=== PATIENT | male | born 1965 | race Caucasian/White ===

== ENCOUNTER 2016-10-10 16:29 | Emergency (ER) | payer BC ==
[~2016-10-10] VITALS: Ht 180.3 cm; Wt 109.0 kg
[~2016-10-10 16:29] MED LIST changes: -ALLO100T PO; -ASPI325T45 PO; -ASPI81TA28 PO; -B-COTAB18 PO; -CHOL2000 PO; -FLUT0.15 NAE; -MULT-506 PO; -OPTIRAY 320 IV PRN; -TRAZ50TA35 PO; -ZOLP10TA6 PO
[2016-10-10 16:53] VITALS: TEMP 36.8; Ht 180.3 cm; Wt 109.0 kg
[2016-10-10] MEDS ORDERED: MULT-506 PO (17:07)
[2016-10-10 17:31] VITALS: O2SAT 98
[2016-10-10] MEDS ORDERED: ZOLP10TA6 PO (17:50)
[2016-10-10] MEDS ORDERED: ALLO100T PO (17:50)
[2016-10-10] MEDS ORDERED: OMEG10007 PO (17:50)
[2016-10-10] MEDS ORDERED: CHOL2000 PO (17:50)
[2016-10-10] MEDS ORDERED: FLUT0.15 NAE (17:50)
[2016-10-10] MEDS ORDERED: B-COTAB18 PO (17:50)
[2016-10-10] MEDS ORDERED: ASPI325T45 PO (17:53)
[2016-10-10] MEDS ORDERED: ASPI81TA28 PO (17:53)
[2016-10-10] MEDS ORDERED: TRAZ50TA35 PO (17:53)
[2016-10-10 18:39] LABS: BASO % 0.5 %; BASO ABS # 0.03 K/uL (0-0.2); COMPLETE YES; HEMATOCRIT 40.5 % (42-52); IG% 0.2 %; LYMPH % 29.8 %; LYMPH ABS # 1.89 K/uL (1.2-3.4); MEAN CELL VOLUME 87.7 fL (80-100); MEAN CORPUSCULAR HEMOGLOBIN 30.3 pg (25-34); MEAN CORPUSCULAR HGB CONC 34.6 g/dl (32-36); MEAN PLATELET VOLUME 11.1 fL (7.4-10.4); MONO % 10.2 %; NEUT % 57.3 %; PLATELET COUNT 191 K/uL (130-400); RED BLOOD COUNT 4.62 M/uL (4.7-6.1); WHITE BLOOD COUNT 6.35 K/uL (4.8-10.8)
[2016-10-10 18:43] LABS: PARTIAL THROMBOPLASTIN RATIO 0.9; PROTHROMBIN TIME (PATIENT) 10.6 SECONDS (9.0-12.0)
[2016-10-10 18:51] LABS: BUN/CREATININE RATIO 15.1 (10-20); CALCIUM 8.7 mg/dl (8.5-10.1); CREATININE 1.6 mg/dl (0.60-1.40); POTASSIUM 3.8 mmol/L (3.5-5.1)
--- NOTE | 2016-10-10 18:51 | EMERGENCY ROOM VISIT NOTE ---
History Report prepared by Chris: Edwin Schulz Under the Supervision of: Dr. Eliot Arciniega M.D. First contact with patient: 18:22 Chief Complaint: ABNORMAL DIAGNOSTIC TESTING Stated Complaint: ABN CT SCAN History of Present Illness The patient is a 51 year old male who presents to the Emergency Room with complaints of an abnormal diagnostic testing. He notes he recently returned from [place] and reports total travel of about 30 hours. He reports having some heaviness sensation in his legs and in his chest last night. This morning, he was doing heavy exercise and felt tired. He had a D-dimer and US taken recently at [facility], and came to [facility] for a CT. He reports it was noted he may have a PE. The patient states he has a bifurcated femoral vein, and developed a DVT s/p an Achilles surgery in half the vein. He notes he was then put on Coumadin. Source of History: patient Onset: earlier today Position: other (global) Quality: other (abnomal diagnostic testing) Timing: other (episode) Associated Symptoms: + fatigue Note: The patient reports having chest and leg "heaviness" Review of Systems See HPI for pertinent positives & negatives. A total of 10 systems reviewed and were otherwise negative. Past Medical & Surgical Medical Problems: (1) History of DVT (deep vein thrombosis) Family History No pertinent family history stated. Social History Smoking Status: Never Smoker Current/Historical Medications Scheduled Allopurinol (Zyloprim), 100 MG PO DAILY Aspirin (Aspirin Ec), 81 MG PO DAILY B-Complex Vitamins (Vitamin B Complex), 1 TAB PO DAILY Cholecalciferol (Vitamin D3), 2,000 INTER.UNIT PO DAILY Fish Oil ([place]-3), 1 CAP PO DAILY Multivitamin (Multivitamin), 1 TAB PO DAILY Trazodone Hcl (Trazodone), 50 MG PO HS Scheduled PRN Aspirin (Aspirin), 975 MG PO UD PRN for Pain Cetirizine (Zyrtec), 10 MG PO DAILY PRN for Alergy Symptoms Fluticasone Propionate (Nasal) (Flonase Allergy Relief), 2 SPRAYS OSMEL DAILY PRN for Allergy Symptoms Zolpidem Tartrate (Zolpidem Tartrate), 5-10 MG PO HS PRN for Sleep Allergies Coded Allergies: Penicillins (Verified Allergy, Mild, 08/24/11) Physical Exam Vital Signs Date Time Temp Pulse Resp B/P Pulse Ox O2 Delivery O2 Flow Rate FiO2 10/10/16 19:12 74 18 133/83 98 Room Air 10/10/16 17:31 98 Room Air 10/10/16 17:08 90 10/10/16 16:53 36.8 83 18 156/88 97 Room Air Physical Exam CONSTITUTIONAL: No acute distress. HEENT: No icterus, moist mucous membranes NECK: No meningismus, trachea is midline. CARDIOVASCULAR: Regular rate, normal perfusion RESPIRATORY: Unlabored breathing. Clear to auscultation. GASTROINTESTINAL: Non-tender GENITOURINARY: No flank tenderness MUSCULOSKELETAL: Full range of motion NEUROLOGIC: No acute gross focal deficits. PSYCHIATRIC: Normal affect SKIN: Normal for ethnicity. Medical Decision & Procedures Laboratory Results 10/10/16 17:09 Red Blood Count 4.62, Mean Corpuscular Volume 87.7, Mean Corpuscular Hemoglobin 30.3, Mean Corpuscular Hemoglobin Concent 34.6, Mean Platelet Volume 11.1, Neutrophils (%) (Auto) 57.3, Lymphocytes (%) (Auto) 29.8, Monocytes (%) (Auto) 10.2, Eosinophils (%) (Auto) 2.0, Basophils (%) (Auto) 0.5, Neutrophils # (Auto ) 3.64, Lymphocytes # (Auto) 1.89, Monocytes # (Auto) 0.65, Eosinophils # (Auto ) 0.13, Basophils # (Auto) 0.03 10/10/16 17:09 Test 10/10/16 17:09 White Blood Count 6.35 K/uL (4.8-10.8) Red Blood Count 4.62 M/uL (4.7-6.1) Hemoglobin 14.0 g/dL (14.0-18.0) Hematocrit 40.5 % (42-52) Mean Corpuscular Volume 87.7 fL (80-100) Mean Corpuscular Hemoglobin 30.3 pg (25-34) Mean Corpuscular Hemoglobin Concent 34.6 g/dl (32-36) Platelet Count 191 K/uL (130-400) Mean Platelet Volume 11.1 fL (7.4-10.4) Neutrophils (%) (Auto) 57.3 % Lymphocytes (%) (Auto) 29.8 % Monocytes (%) (Auto) 10.2 % Eosinophils (%) (Auto) 2.0 % Basophils (%) (Auto) 0.5 % Neutrophils # (Auto) 3.64 K/uL (1.4-6.5) Lymphocytes # (Auto) 1.89 K/uL (1.2-3.4) Monocytes # (Auto) 0.65 K/uL (0.11-0.59) Eosinophils # (Auto) 0.13 K/uL (0-0.5) Basophils # (Auto) 0.03 K/uL (0-0.2) RDW Standard Deviation 46.3 fL (36.4-46.3) RDW Coefficient of Variation 14.3 % (11.5-14.5) Immature Granulocyte % (Auto) 0.2 % Immature Granulocyte # (Auto) 0.01 K/uL (0.00-0.02) Prothrombin Time 10.6 SECONDS (9.0-12.0) Prothromb Time International Ratio 1.0 (0.9-1.1) Activated Partial Thromboplast Time 24.0 SECONDS (21.0-31.0) Partial Thromboplastin Ratio 0.9 Anion Gap 8.0 mmol/L (3-11) Est Creatinine Clear Calc Drug Dose 68.6 ml/min Estimated GFR () 57.0 Estimated GFR (Non- 49.2 BUN/Creatinine Ratio 15.1 (10-20) Calcium Level 8.7 mg/dl (8.5-10.1) Labs reviewed by ED physician. ED Course 183: Past medical records reviewed. The patient was evaluated in room A9A. A complete history and physical examination was performed. 1850: Discussed the patient's case with Dr. Sawyer. 1915: Upon reexamination the patient is doing well. I discussed results and treatment plan with the patient. He verbalizes agreement and understanding. The patient is ready for discharge. Medical Decision 51-year-old presented to the emergency department after CT scan showed positive pulmonary embolus. He has a history of DVT in the past after Achilles surgery. He had some chest discomfort and while DVT of the lower extremities at [facility] was normal D-dimer was positive and subsequent CT demonstrated (+) PE (Please see CT report for full details.) Creatinine 1.6. Consultation with Dr. Simon with hospitalist service obtained. Case also discussed with clinical pharmacist. Hospitalist and I made decision to prescribe Xarelto 15mg twice a day and discharge to have outpatient follow-up with primary doctor. Prescription called into [facility] by me. Patient understands to follow-up with his primary doctor promptly and to have his creatinine rechecked in the next 1-2 weeks. Consults Time Called: 1844 Consulting Physician: Dr. Sawyer Returned Call: 1849 Discussed the patient's case with Dr. Sawyer. Impression Primary Impression: Pulmonary embolism Scribe Attestation The scribe's documentation has been prepared under my direction and personally reviewed by me in its entirety. I confirm that the note above accurately reflects all work, treatment, procedures, and medical decision making performed by me. Departure Information Dispostion Home / Self-Care Referrals Daniel Schmitt M.D. (PCP) Patient Instructions Embolism Pulmonary D[facility], [facility] Additional Instructions supervisory clerk your Xarelto 15mg BID. Check kidney funtion (Cr 1.6) in 1-2 weeks with your primary doctor.
[2016-10-10 19:21] VITALS: BP 133/83; PULSE 71; O2SAT 96
--- NOTE | 2016-10-11 01:22 | CONSULTATION REPORT ---
DATE OF CONSULTATION: 10/10/2016 CHIEF COMPLAINT: Abnormal CT scan results. HISTORY OF PRESENT ILLNESS: A 51-year-old male who presents to Emergency Room complaining of abdominal diagnostic testing. He recently returned from [place] reported that his travel was about 30 hours with connecting flights. He reported some heaviness sensation in his legs and his chest last night. He has a history of DVT in his left leg that was provoked after ankle surgery. This morning, he was doing heavy exercise and felt tired. An ultrasound was taken recently at [facility]. He was told at [facility] that he had old blood clot in his left leg at bifurcation. He came to [facility] for a CAT scan. He reports that it was noted that he may have a PE. He reports that he was put on Coumadin when he had his first episode of DVT before. REVIEW OF SYSTEMS: Negative except as above. Ten out of 14 systems were reviewed. He denies shortness of breath, chest pain. 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 FAMILY HISTORY: No coronary artery disease, diabetes, cancer. SOCIAL HISTORY: Does not smoke, does not drink. CURRENT MEDICATIONS: Allopurinol 100 mg p.o. daily, aspirin 81 mg p.o. daily, B complex 1 tablet p.o. daily, cholecalciferol 2000 international units p.o. daily, fish oil 1 capsule p.o. daily, multivitamin 1 tablet p.o. daily, trazodone 50 mg p.o. at bedtime, aspirin 975 mg p.r.n. pain, cetirizine 10 mg p.o. daily, fluticasone 2 sprays nasally p.r.n. allergy symptoms, zolpidem 5-10 mg p.o. p.r.n. sleep. ALLERGIES: HE IS ALLERGIC TO PENICILLIN. PHYSICAL EXAMINATION: VITAL SIGNS: Temperature 36.8, pulse 90, respirations 18, blood pressure 156/88, pulse ox 97% on room air. GENERAL: Not in acute distress. HEENT: Normocephalic, atraumatic. PERRLA, EOMI. Mouth moist, no lesions. NECK: No JVD. Trachea midline. Throat is not enlarged. CHEST: Clear to auscultation bilateral. No wheezes, no rhonchi. ABDOMEN: Soft, nontender, nondistended. Bowel sounds present bilateral. EXTREMITIES: No clubbing, cyanosis, edema. NEUROLOGICAL: Alert, oriented x3. Motor sensory normal. Deep tendon reflexes 2+ bilateral. Cranial nerves II-XII are intact. SKIN: No rash. No jaundice. LYMPHATIC: No pathological lymphadenopathy. LABORATORY DATA: CBC normal. BMP normal except for a BUN of 24, creatinine of 1.6, and glucose 81. IMAGING STUDY: Chest CTA showed bilateral pleural predominantly right-sided pulmonary artery filling defects consistent with pulmonary embolism and also a 4 mm right middle lobe pulmonary nodule. ASSESSMENT AND PLAN: 1. Bilateral right-sided pulmonary artery pulmonary embolism. The patient is asymptomatic. We will place the patient on oral Xarelto 15 mg p.o. b.i.d. for 21 days followed by 20 mg of Xarelto. Follow up with primary care physician to decide length of treatment. 2. A 4 mm right middle lobe pulmonary nodule. Initial followup could be done in 12 months if unchanged then No further followup is required. The patient should follow up with his primary care physician. The patient was also told about his restrictions due to his PE. He should not fly for the next 3 months, avoid any strenuous activity next few months. Time spent doing this admission 50 minutes. RIGOBERTO
== END 2016-10-10 19:24 | disposition home or self-care (01) ==
LOC: C.EDB 16:30 → C.EDA 19:24
DX: I26.99 Other pulmonary embolism without acute cor pulmonale (principal); Z79.82 Long term (current) use of aspirin; Z79.899 Other long term (current) drug therapy; Z88.0 Allergy status to penicillin

== ENCOUNTER → 2016-10-10 | Outpatient (CLI) | payer BC ==
[~2016-10-10] MED LIST: ALLO100T PO; ASCA500 PO; ASPEC325 PO; ASPI325T45 PO; ASPI81TA28 PO; B-COTAB18 PO; CETI10TA84 PO; CHOL100010 PO; CHOL2000 PO; CMD5 PO; FLAXSEED PO; FLNIN NAE; FLUT0.15 NAE; MULT-506 PO; OMEG10007 PO; OPTIRAY 320 IV PRN; RANITAB33 PO; TRAZ50TA35 PO; VITAMIN B COMPLEX PO; ZOLP10TA6 PO; [UNRECOGNIZED DRUG - CODE] PO
--- NOTE | 2016-10-10 16:14 | DIAGNOSTIC IMAGING REPORT ---
CT ANGIOGRAM OF THE CHEST CLINICAL HISTORY: Atypical chest pain. History of DVT. COMPARISON STUDY: Chest x-ray dated 08/11/2011 TECHNIQUE: Following the IV administration of 114 mL of [id number]-320, CT angiogram of the thorax was performed from the thoracic inlet to the lung bases utilizing the pulmonary embolus protocol. Images are reviewed in the axial, sagittal, and coronal planes. IV contrast was administered without complication. MIP imaging was performed. CT DOSE: 589.57 mGy.cm FINDINGS: No pathologically enlarged axillary mediastinal or hilar lymph nodes were visualized. There was no evidence of thoracic aortic dilatation. There are bilateral, predominantly right-sided, pulmonary artery filling defects. Several these appear subacute. No pleural effusions are visualized. There was no evidence of focal pulmonary consolidation. There is a 4 mm right middle lobe pulmonary nodule as visualized in image #[id number]. IMPRESSION: 1. Bilateral predominantly right-sided pulmonary artery filling defects. The findings are consistent with pulmonary embolism. Several of these appear subacute 2. 4 mm right middle lobe pulmonary nodule Please refer to below summary of Fleischner criteria recommendations for follow-up of incidental CT nodules (Robyn Waddell, Guidelines for management of small pulmonary nodules detected on CT scans: A statement from the Fleischner Society, Radiology 237: [phone].) Low Risk Patient: Minimal or no smoking or other known risk factors for malignancy <=4 mm: No follow-up needed. >4-6 mm: Initial follow-up CT at 12 months; if unchanged, no further follow-up. >6-8 mm: Initial follow-up CT at 6-12 months then at 18-24 months if no change. >8 mm: Follow-up CT at \R\3, 9, 24 months, or PET and/or biopsy. High Risk Patient: History of smoking or other known risk factors <=4 mm: Follow-up at 12 months; if unchanged, no further follow-up. >4-6 mm: Initial follow-up CT at 6-12 months then at 18-24 months if no change. >6-8 mm: Initial follow-up CT at 3-6 months then at 9-12 and 24 months if no change. >8 mm: Same as low risk patient. Note: Nodule size measured as average of length and width. Ground glass or partly solid nodules may require longer follow-up to exclude indolent adenocarcinoma. Electronically signed by: Stalin Lund M.D. 10/10/2016 4:13 PM Dictated Date/Time: 10/10/2016 4:06 PM
== END | disposition home or self-care (01) ==
LOC: C.CTS 15:43
PROVIDERS: ATTEND Nurse Practitioner Family
DX: R07.89 Other chest pain (principal); Z86.718 Personal history of other venous thrombosis and embolism; Z78.9 Other specified health status; R91.1 Solitary pulmonary nodule

== ENCOUNTER → 2017-04-25 | Outpatient (CLI) | payer BC ==
[~2017-04-25] MED LIST changes: +ALLO100T PO; -ASCA500 PO; -ASPEC325 PO; +ASPI325T45 PO; +ASPI81TA28 PO; +B-COTAB18 PO; -CHOL100010 PO; +CHOL2000 PO; -CMD5 PO; -FLAXSEED PO; -FLNIN NAE; +FLUT0.15 NAE; +MULT-506 PO; -RANITAB33 PO; +TRAZ50TA35 PO; -VITAMIN B COMPLEX PO; +ZOLP10TA6 PO; -[UNRECOGNIZED DRUG - CODE] PO
--- NOTE | 2017-04-25 16:38 | DIAGNOSTIC IMAGING REPORT ---
LEFT FOOT MIN 3 VIEWS CLINICAL HISTORY: HAMMER TOES COMPARISON: None FINDINGS: Alignment of the left foot is anatomic. The tarsometatarsal joints are intact. There is minimal posterior and plantar calcaneal spurring. Note is made of a 2.1 x 0.8 cm lucent mildly expansile lesion within the proximal phalanx of the left second toe. There is no pathologic fracture. No additional osseous lesions are identified. No erosions are identified. There is minimal arthritis within several articulations of the left foot. IMPRESSION: 1. No acute fracture or dislocation of the left foot. 2. 2.1 x 0.8 cm lucent expansile lesion within the proximal phalanx of the left second digit. This likely represents an enchondroma. Electronically signed by: Charles Acosta M.D. 04/25/2017 4:37 PM Dictated Date/Time: 04/25/2017 4:33 PM
--- NOTE | 2017-04-25 16:42 | DIAGNOSTIC IMAGING REPORT ---
RIGHT FOOT 3 VIEWS CLINICAL HISTORY: Hammertoes. FINDINGS: 3 views of the right foot are compared to study dated 02/03/2016. The skeletal structures are well mineralized. No fracture is seen. The joint spaces of the foot are well-maintained. Mild spurring is seen along the dorsal last of the tarsal bones. The overlying soft tissues are within normal limits. An os peroneum is incidentally noted. IMPRESSION: No acute bony abnormality is seen in the right foot. Electronically signed by: Mark Santoro M.D. 04/25/2017 4:41 PM Dictated Date/Time: 04/25/2017 4:38 PM
== END | disposition home or self-care (01) ==
LOC: C.RDSM 16:16
PROVIDERS: ATTEND Podiatrist
DX: M20.41 Other hammer toe(s) (acquired), right foot (principal); M20.42 Other hammer toe(s) (acquired), left foot

== ENCOUNTER → 2017-09-06 | Outpatient (CLI) | payer BC, OTHER | END | disposition home or self-care (01) | LOC: C.RDSM 11:19 | PROVIDERS: ATTEND Orthopaedic Surgery | DX: M77.8 Other enthesopathies, not elsewhere classified (principal) ==

== ENCOUNTER 2023-12-05 05:24 | Observation (INO) ==
--- NOTE | 2023-11-14 16:13 | PAT Medication Instructions ---
Medication Instructions Date of Service November 14, 2023 Home Medications Medication Instructions Recorded gentamicin 0.3 % eye drops 2 drp ophthalmic (eye) DAILY #5 mL 11/13/23 allopurinol 100 mg tablet 100 mg PO QAM aspirin 325 mg tablet 975 mg PO QAM PRN Pain fluticasone propionate 50 mcg/actuation nasal spray,suspension (Flonase Allergy Relief) 1 sprays intranasal BID PRN sinus congestion omega-3 fatty acids 1,000 mg capsule (Fish Oil Concentrate) 1,000 mg PO QAM rivaroxaban 20 mg tablet (Xarelto) 20 mg PO QPM trazodone 50 mg tablet 50 mg PO HS albuterol sulfate 90 mcg/actuation aerosol inhaler (ProAir HFA) 1 puff inhalation QID PRN Shortness Of Breath doxycycline hyclate 50 mg tablet 50 mg PO DAILY PRN Rash cholecalciferol (vitamin D3) 50 mcg (2,000 unit) capsule (Vitamin D3) 50 mcg PO Q OTHER DAY [id number] 300 mcg-K 60 mcg-lycop 600 mcg-lutein 300 mcg tablet (Men 50 Plus Multivitamin) 1 tab PO QAM zinc 1 tab PO HS coenzyme Q10 100 mg capsule (Co Q-10) 150 mg PO Q OTHER DAY krill oil 500 mg capsule 500 mg PO QAM tramadol 50 mg tablet 50 mg PO Q6H PRN Pain azelaic acid 15 % topical gel 1 applic topical DAILY PRN Acne pantoprazole 40 mg tablet,delayed release 40 mg PO QPM acetaminophen 325 mg tablet (Tylenol) 650 mg PRN Pain gentamicin 0.3 % eye drops 2 drp ophthalmic (eye) DAILY Continue as directed doxycycline hyclate 50 mg tablet 50 mg PO DAILY PRN Rash (if needed) gentamicin 0.3 % eye drops 2 drp ophthalmic (eye) DAILY ASK your surgeon for instructions aspirin 325 mg tablet 975 mg PO QAM PRN Pain ASK your prescriber and surgeon rivaroxaban 20 mg tablet (Xarelto) 20 mg PO QPM (in order to get spinal an esthesia DOS- must be off Xarelto/rivaroxaban for at least 72 hours) STOP taking 2 weeks before surgery omega-3 fatty acids 1,000 mg capsule (Fish Oil Concentrate) 1,000 mg PO QAM coenzyme Q10 100 mg capsule (Co Q-10) 150 mg PO Q OTHER DAY krill oil 500 mg capsule 500 mg PO QAM STOP taking 24 hours before surgery azelaic acid 15 % topical gel 1 applic topical DAILY PRN Acne DO NOT take the morning of surgery cholecalciferol (vitamin D3) 50 mcg (2,000 unit) capsule (Vitamin D3) 50 mcg PO Q OTHER DAY [id number] 300 mcg-K 60 mcg-lycop 600 mcg-lutein 300 mcg tablet (Men 50 Plus Multivitamin) 1 tab PO QAM Take morning of surgery With a small sip of water, OTHERWISE NOTHING TO EAT OR DRINK AFTER MIDNIGHT: allopurinol 100 mg tablet 100 mg PO QAM fluticasone propionate 50 mcg/actuation nasal spray,suspension (Flonase Allergy Relief) 1 sprays intranasal BID PRN sinus congestion (if needed) albuterol sulfate 90 mcg/actuation aerosol inhaler (ProAir HFA) 1 puff inhalation QID PRN Shortness Of Breath (use if needed; please bring with you to hospital day of surgery if possible) tramadol 50 mg tablet 50 mg PO Q6H PRN Pain (if needed) acetaminophen 325 mg tablet (Tylenol) 650 mg PRN Pain (if needed) Take evening before surgery fluticasone propionate 50 mcg/actuation nasal spray,suspension (Flonase Allergy Relief) 1 sprays intranasal BID PRN sinus congestion (if needed) trazodone 50 mg tablet 50 mg PO HS albuterol sulfate 90 mcg/actuation aerosol inhaler (ProAir HFA) 1 puff inhalation QID PRN Shortness Of Breath (if needed) zinc 1 tab PO HS tramadol 50 mg tablet 50 mg PO Q6H PRN Pain (if needed) pantoprazole 40 mg tablet,delayed release 40 mg PO QPM acetaminophen 325 mg tablet (Tylenol) 650 mg PRN Pain (if needed) Other Notes If you have any questions please call us at [phone] or [phone] or [phone] or [phone]
--- NOTE | 2023-11-19 10:19 | Anesthesiology Consultation ---
Date of Service November 19, 2023 Assessment & Plan (1) Encounter for pre-operative examination: - facial hair: Patient was advised on trimming/shaving facial hair. - Outpatient joint assessment: Patient is currently scheduled for inpatient pathway. If re-evaluated and patient/surgeon requests outpatient pathway, patient is acceptable candidate for outpatient joint program from anesthesia standpoint pending surgeon's office assessment of pt motivation/support/completion of same day joint program preop requirements. Chart Review Chart Review: Acceptable Risk for Surgery and Patient seen in Pre Admission Testing Teaching & Discussion Pre-Anesthesia Teaching/Discussion Notes: Instructed NPO after midnight before surgery, except medications with 15 cc of water. Medication instructions provided according to the PAT guidelines. History Surgery Operation Date: 12/05/23 09:00 Proposed Procedures p Left Total Hip Arthroplasty with Dual Mobility Cup - Rudy Benito MD Height/Weight Height: 5 ft 10 in Weight: 120.2 kg Allergies Allergy/AdvReac Type Severity Reaction Status Date / Time Penicillins Allergy Intermediate Elevated Verified 11/07/23 14:26 liver enzymes Medications Home Medications Medication Instructions Recorded Confirmed Last Taken allopurinol 100 mg tablet 100 mg PO QAM 08/13/19 11/07/23 11/07/23 08:15 aspirin 325 mg tablet 975 mg PO QAM PRN Pain 08/13/19 11/07/23 11/01/23 fluticasone propionate 50 1 sprays intranasal BID PRN sinus 08/13/19 11/07/23 03/25/21 09:00 mcg/actuation nasal congestion spray,suspension (Flonase Allergy Relief) omega-3 fatty acids 1,000 mg 1,000 mg PO QAM 08/13/19 11/07/23 11/01/23 capsule (Fish Oil Concentrate) rivaroxaban 20 mg tablet (Xarelto) 20 mg PO QPM 08/13/19 11/07/23 11/01/23 trazodone 50 mg tablet 50 mg PO HS 08/13/19 11/07/23 11/06/23 albuterol sulfate 90 mcg/actuation 1 puff inhalation QID PRN 09/09/19 11/07/23 09/29/19 aerosol inhaler (ProAir HFA) Shortness Of Breath doxycycline hyclate 50 mg tablet 50 mg PO DAILY PRN Rash 09/09/19 11/07/23 2 Weeks Ago ~10/24/23 cholecalciferol (vitamin D3) 50 50 mcg PO Q OTHER DAY 03/22/21 11/07/23 11/03/23 mcg (2,000 unit) capsule (Vitamin D3) [id number]-[id number] 300 mcg-K 60 1 tab PO QAM 03/22/21 11/07/23 11/04/23 mcg-lycop 600 mcg-lutein 300 mcg tablet (Men 50 Plus Multivitamin) zinc 1 tab PO HS 03/22/21 11/07/23 11/05/23 coenzyme Q10 100 mg capsule (Co 150 mg PO Q OTHER DAY 03/25/21 11/07/23 11/03/23 Q-10) krill oil 500 mg capsule 500 mg PO QAM 04/13/21 11/07/23 11/01/23 tramadol 50 mg tablet 50 mg PO Q6H PRN Pain 10/26/23 11/07/23 11/04/23 azelaic acid 15 % topical gel 1 applic topical DAILY PRN Acne 11/05/23 11/05/23 Unknown pantoprazole 40 mg tablet,delayed 40 mg PO QPM 11/05/23 11/05/23 11/05/23 release acetaminophen 325 mg tablet 650 mg PRN Pain 11/07/23 11/06/23 (Tylenol) gentamicin 0.3 % eye drops 2 drp ophthalmic (eye) DAILY #5 mL 11/13/23 Unknown Past Medical History Medical History (Updated 11/19/23 @ 14:19 by Bibi Nesbitt PA-C) Asthma exercise induced, inhaler rarely-last used yrs ago Bilateral hip joint arthritis BPH (benign prostatic hyperplasia) Cardiac murmur as child, pt denies persistence into adulthood Deep vein thrombosis post achilles surgery> 09/2011 > currently taking xarelto daily. GERD (gastroesophageal reflux disease) controlled, stable per pt History of colon polyps History of COVID-19 (~07/2022) resolved Hypertension borderline, no meds USP (current) use of anticoagulants Osteoarthritis Pulmonary embolism (~2017) from plane ride, xarelto Sleep apnea CPAP-compliant Patient denies h/o stroke, seizures, heart attack, heart failure, DM, or blood transfusions. Exercise / Class Metabolic Activity II 4-5 Yardwork/Stairs/Walk up hill (denies chest discomfort or shortness of breath with 1 FOS) Past Family History Family History Grandfather (Paternal) Diabetes Other No family history of adverse response to anesthesia Past Surgical History Surgical History (Updated 11/19/23 @ 10:24 by Bibi Nesbitt PA-C) History of Achilles tendon repair lt History of colonoscopy multiple History of nasal septoplasty History of nephrectomy, left donor History of tonsillectomy Hx of elbow surgery bone spur left elbow Hx of hand surgery left little finger Hx of hand surgery right middle finger surgery Hx of thumb surgery x2 (right thumb) Hx of vasectomy S/P arthroscopy of right shoulder Past Anesthesia History No Hx of Anesthesia Complications and No Family Hx of Anesthesia Complications History of PONV No Hx of PONV and No Hx of Motion Sickness Social History Smoking Status: Never smoker Do You Dip or Chew Tobacco: No Hx Alcohol Use: Yes Alcohol type: beer, wine and hard liquor alcohol intake frequency: a few times a month Hx Substance Use: No substance use type: does not use Review of Systems Patient denies chest pain, shortness of breath, dyspnea on exertion, fever, chills, cough, wheezing, or palpitations. Physical Exam Vital Signs Vitals BP 127/86 P 61 TEMP 97.8 SP02 99% on RA RESP 18 Physical Patient resting comfortably in chair in no acute distress, alert and oriented, responding appropriately throughout visit Full cervical extension range of motion without pain TMD 3.5 finger breadths Mallampati Score 2 Dentition: intact, denies chipped or loose teeth, caps/crowns, implants or bridges Lungs: normal respiratory effort. Good air movement, clear throughout to auscultation, no adventitious breath sounds Cardiac: regular rate and rhythm, no murmurs noted Carotid arteries: negative bruit bilat Lab Results Anesthesia Preop Results Results Anesthesia Widget: WBC 4.52 K/ul (4.8-10.8) L 11/19/23 Hgb 14.7 g/dl (14.0-18.0) 11/19/23 Hct 43.2 % (42.0-52.0) 11/19/23 Plt 194 K/uL (130-400) 11/19/23 Na 136 mmol/L (135-146) 03/15/24 K 4.5 mmol/L (3.5-5.3) 11/16/23 Cl 104 mmol/L (98-110) 11/16/23 CO2 22 mmol/L (20-32) 11/16/23 BUN 29 mg/dL (7-25) H 11/16/23 Creat 1.33 mg/dL (0.70-1.30) H 11/16/23 Glucose Level 103 mg/dL (65-99) H 11/16/23 PT 12.3 Seconds (9.0-12.0) H 11/19/23 PTT 33 Seconds (21-31) H 11/19/23 INR 1.1 (0.9-1.1) 11/19/23 Urine Color YELLOW (YELLOW) 11/16/23 Urine Appearance CLEAR (CLEAR) 11/16/23 Urine pH 6.5 (5.0-8.0) 11/16/23 Urine Specific [place] 1.008 (1.001-1.035) 11/16/23 Urine Protein NEGATIVE (NEGATIVE) 11/16/23 Urine Glucose (UA) NEGATIVE (NEGATIVE) 11/16/23 Urine Ketones NEGATIVE (NEGATIVE) 11/16/23 Urine Blood NEGATIVE (NEGATIVE) 11/16/23 Urine Nitrite NEGATIVE (NEGATIVE) 11/16/23 Urine Bilirubin NEGATIVE (NEGATIVE) 11/16/23 Urine Leukocyte Esterase NEGATIVE (NEGATIVE) 11/16/23 Blood Type A Positive 11/19/23 Antibody Screen NEGATIVE 11/19/23 Testing Laboratory Results 11/16/23 SODIUM: 136 POTASSIUM: 4.5 CHLORIDE: 104 CO2: 22 BUN: 29 CREATININE: 1.3 GLUCOSE: 103 UA: clear, negative Electrocardiogram Date: 11/19/23 NSR, rate 63 bpm Chest X-Ray Date: 11/19/23 No acute chest disease. Stress Test Date: 04/12/21 METS 10 MPHR > 100% Negative stress echo and EKG for ischemia EF 60% Normal LV wall motion at rest
[2023-12-05] MEDS: LR 500ML BOLUS, THEN 15ML/HR IV SCH (06:09)
[2023-12-05] MEDS: LR 60ML/HR IV SCH (06:09)
[2023-12-05] MEDS ORDERED: ROPIVACAINE 0.5% 5 MG/ML 30 ML VIAL ONE (06:23)
--- NOTE | 2023-12-05 06:30 | History & Physical Bridge Note ---
Date of Service December 05, 2023 History & Physical Bridge Note I have examined the patient, reviewed the History & Physical and in the interval since the performance of the History & Physical I have noted the following changes of clinical significance:site and consent verified.advised regarding rowing and avoidance . no changes noted
[2023-12-05] MEDS ORDERED: MIDAZOLAM HCL 1 MG/ML 2ML VIAL ONE (06:40)
[2023-12-05] MEDS ORDERED: ONDANSETRON INJ 2 MG/ML 2 ML VIAL IV PRN ×2 (06:40→09:55)
[2023-12-05] MEDS ORDERED: HYDROmorphone INJ 1 MG/ML SYRINGE IV PRN (06:40)
[2023-12-05] MEDS ORDERED: ePHEDrine sulfate 50 MG/ML AMP IV PRN (06:40)
[2023-12-05] MEDS ORDERED: ATROPINE SULFATE 0.1 MG/ML 10ML SYR IV PRN (06:40)
[2023-12-05] MEDS: ceFAZolin 3000MG 3,000 MG/72.5 ML BAG IV SCH (06:55)
[2023-12-05] MEDS ORDERED: PROPOFOL IV EMULSION 10 MG/ML 20 ML VIAL IV ONE ×2 (07:20→07:26)
[2023-12-05] MEDS: ORTHO JOINT ANESTHETIC ONE (07:28)
[2023-12-05] MEDS: TRANEXAMIC ACID 1,000 MG x 1 **TOPICAL Use Intraop TOP SCH (08:22)
[2023-12-05] MEDS: ROPIVACAINE 0.5% HCL/PF 246 MG, EPINEPHrine 30MG/30ML (OR USE) 0.5 MG in SODIUM CHLORID... INFIL SCH (08:30)
--- NOTE | 2023-12-05 08:36 | Post Operative Brief Note ---
Immediate Post Op Note v1 Date of Surgery December 05, 2023 Pre & Post Diagnosis Operation Date: 12/05/23 07:00 <No data on this case meets the specified criteria> Osteoarthritis with femoral acetabular impingement left hip pre and postop diagnosis same I identified the patient and participated in the time-out.: Yes Procedure Operation Date: 12/05/23 07:00 <No data on this case meets the specified criteria> Noncemented left total arthroplasty with dual mobility implant Surgeon Rudy Benito MD Attending Anesthesiologist BENTLEY/Liang Estimated Blood Loss 150 Findings Consistent with Post-Op Diagnosis Cam lesion with tonus 2 and 3 osteoarticular disease of his left hip. Labral tear Fluids See anesthesia report
--- NOTE | 2023-12-05 08:40 | Operative Report ---
Post Operative Report Pre & Post Diagnosis Operation Date: 12/05/23 07:00 <No data on this case meets the specified criteria> Osteoarthritis left hip with a large cam lesion and labral tear pre and postop diagnosis same I identified the patient and participated in the time-out.: Yes Procedure Operation Date: 12/05/23 07:00 <No data on this case meets the specified criteria> Noncemented left total replacement with dual mobility implant Surgeon Rudy Benito MD Diesel Service Technician BENTLEY/Liang Estimated Blood Loss 150 Findings Consistent with Post-Op Diagnosis Osteoarthritis tonnis 2 and 3 large labral tear large cam lesion pincer lesion Fluids See anesthesia report Specimens Bone pathology Drains None Complications None Indications Severe pain failed conservative management Description of Procedure After the patient was appropriate notified site verified consent verified antibiotics confirmed as being given the left lower extremity was examined revea ling limitations of internal and external rotation 20 degree flexion contracture. Leg lengths were relatively equal. He was then placed in the right lateral cubitus position the left lower extremity prepped and draped use routine fashion. A posterior approach the hip was then carried out. Sharp dissection down to the fascia this was then incised under direct vision appropriate retractor placed protecting the sciatic nerve short external rotators were then identified and released the capsule was then teed and the hip dislocated the femoral neck resected. Acetabular cleanout was required there was a large amount of synovial disease being pulled and are not anterior labrum torn and into the joint. This was all resected. Serial reaming was then carried up to a 54 and 54 cup impacted in appropriate inclination and anteversion secured with additional 6.5 x 30 mm screw with excellent purchase. The dual mobility liner was then seated. The femur was then flexed internally rotated and serial broaching carried up to a size 2 appropriate stem applied with high offset and neck lengths were appropriate hip was very stable. Leg lengths were excellent. The hip was then dislocated all remaining trial elements were removed the wound was then soaked in Betadine and Pulsavac and soaked in TXA for 3 minutes and then the permanent stem seated fit very well so the permanent head and dome cover seated the hip was then reduced it was stable in all planes. The leg lengths were excellent. The capsule was then closed the short external rotators were then closed with #2 Vicryl the The IT band and gluteus jessica fascia closed in separate layers in the same suture. Deep fat was closed with #2 Vicryl superficial with 2-0 Vicryl and standstill clips for skin appropriate dressing applied patient transferred recovery in satisfactory addition having Tolerated procedure well. Ortho mix was injected about the wound with elimination of ketorolac based on kidney disease. Summary of implants size 54 cup acetabular shell sector 30 mm screw x 6.5 dome cover 54 x 47 liner to high offset collared femoral stem [id number] bipolar head 28+5 ceramic head. EBL 150 cc or less crystalloid per anesthesia bone pathology pending DVT prophylaxis per protocol. I attest to the content of the Intraoperative Record and any orders documented therein. Any exceptions are noted below.
--- NOTE | 2023-12-05 08:51 | Operative Report ---
Post Operative Report Pre & Post Diagnosis Operation Date: 12/05/23 07:00 Pre-Op Diagnosis: Left Hip Degenerative Joint Disease Post-Op Diagnosis: Left Hip Degenerative Joint Disease I identified the patient and participated in the time-out.: Yes Procedure Operation Date: 12/05/23 07:00 Actual Procedures p Left Total Hip Arthroplasty with Dual Mobility Cup, Uncemented(Left) - Rudy Benito MD Surgeon Rudy Benito MD Human Resources Admin BENTLEY/Liang Estimated Blood Loss 150 Findings Consistent with Post-Op Diagnosis Same as postoperative diagnosis. Specimens The resected femoral head and neck. Description of Procedure Please see detailed operative note. I attest to the content of the Intraoperative Record and any orders documented therein. Any exceptions are noted below.
--- NOTE | 2023-12-05 08:51 | Operative Report ---
Post Operative Report Pre & Post Diagnosis Operation Date: 12/05/23 07:00 Pre-Op Diagnosis: Left Hip Degenerative Joint Disease Post-Op Diagnosis: Left Hip Degenerative Joint Disease I identified the patient and participated in the time-out.: Yes Procedure Operation Date: 12/05/23 07:00 Actual Procedures p Left Total Hip Arthroplasty with Dual Mobility Cup, Uncemented(Left) - Rudy Benito MD Surgeon DEVONTE Benito MD Relocation Director BENTLEY/Liang GARCIA Estimated Blood Loss 150 Findings Consistent with Post-Op Diagnosis see operative report Specimens see operative report Drains none Complications none Disposition Accompanied Patient To Recovery: Yes Indications This 58 year old male presented to the office with complaints of persisting left knee pain. He had tried conservative care measures without improvement. He elected to proceed with surgical intervention after being educated about potential risks and outcomes. Preoperative imaging was obtained. Description of Procedure The patient was administered a spinal anesthetic and then taken to the operating room where he was given sedation. He was prepped and draped in the usual sterile fashion. Please see Dr. Benito's operative report for specifics of the procedure. I was present for the entire case from initial patient positioning through final wound closure. Assistance was provided in tissue retraction, hemostasis, trial implant placement, final implant placement, and final wound closure. The patient was taken to the recovery room in satisfactory condition. I attest to the content of the Intraoperative Record and any orders documented therein. Any exceptions are noted below.
--- NOTE | 2023-12-05 09:05 | XRay Report ---
XR pelvis 1-2V routine CLINICAL HISTORY: S/P L PATRICIA TECHNIQUE: A single frontal view of the pelvis was obtained. Comparison: Comparison is made to hip radiograph 09/24/2023 FINDINGS: Patient is status post total hip arthroplasty with expected postsurgical changes including soft tissu e swelling, and subcutaneous emphysema. No periarticular lucency or hardware fracture is seen. IMPRESSION: Expected postoperative appearance status post placement of total hip arthroplasty. ACT 112: Negative or not required by law. Electronically signed by: Orion Jc M.D. 12/05/2023 9:04 AM
[2023-12-05] MEDS ORDERED: NON-FORMULARY MEDICATION (Magnesium 100 mg Tablet) PO SCH (09:55)
[2023-12-05] MEDS ORDERED: diphenhydrAMINE 50 MG/ML VIAL IV PRN (09:55)
[2023-12-05] MEDS ORDERED: bisacodyL 10 MG SUPP PR PRN (09:55)
[2023-12-05] MEDS ORDERED: NALOXONE HCL 0.4 MG/1 ML VIAL/CARP IV PRN (09:55)
[2023-12-05] MEDS ORDERED: TAMSULOSIN HCL 0.4 MG CAP PO PRN (09:55)
[2023-12-05] MEDS ORDERED: FLUTICASONE PROPIONATE NA SPR 16 GM BTL NAE PRN (09:55)
[2023-12-05] MEDS ORDERED: MAGNESIUM HYDROXIDE SUSP 30 ML UDC PO PRN (09:55)
[2023-12-05] MEDS ORDERED: ALUMINUM/MAGNESIUM SUSP 30 ML UDC PO PRN (09:55)
[2023-12-05] MEDS ORDERED: METOCLOPRAMIDE HCL INJ 5 MG/ML 2 ML VIAL IV PRN (09:55)
[2023-12-05] MEDS ORDERED: ALBUTEROL HFA 8 GM INHALER INH PRN (09:55)
--- NOTE | 2023-12-05 10:06 | Anesthesiology Progress Note ---
Date of Service December 05, 2023 Anesthesia Post Procedure Vital Signs Vital Signs: Temp Pulse Pulse Resp BP BP Pulse Ox 12/05/23 09:55 36.4 C L 61 16 115/78 99 12/05/23 09:40 68 18 125/76 98 12/05/23 09:30 36.4 C L 68 12 118/71 98 12/05/23 09:20 59 L 12 136/73 100 12/05/23 09:10 61 16 127/68 99 12/05/23 09:00 65 18 128/66 100 12/05/23 08:50 69 20 116/66 100 12/05/23 08:48 36.4 C L 71 16 121/68 99 12/05/23 05:48 36.6 C 82 18 140/93 97 O2 Del Method O2 Flow Rate 12/05/23 09:55 Room Air 12/05/23 09:40 Room Air 12/05/23 09:30 Room Air 12/05/23 09:20 Room Air 12/05/23 09:10 Room Air 12/05/23 09:00 Room Air 12/05/23 08:50 Room Air 12/05/23 08:48 Oxymask 6 12/05/23 05:48 Room Air Transfer of Care Handoff Completed per policy Notes Mental Status: alert / awake / arousable Patient Amnestic to Procedure: Yes Nausea / Vomiting: adequately controlled Pain: adequately controlled Airway Patency, RR, SpO2: stable & adequate BP & HR: stable & adequate Hydration State: stable & adequate Neuraxial Anesthesia: was administered and sensory block is resolving Anesthetic Complications: no major complications apparent
--- OUTSIDE RECORDS SUMMARY | 2023-12-05 10:16 | External Medical Summary | Continuity of Care Document ---
Author Name Unknown Organization [facility] [id number] [place] [address] [phone] Care Team Providers Care Assistant Attorney General Name Role Phone Daniel Schmitt Primary Care Physician [phone] Encounter [facility] [id number] Date(s): 11/27/23 - 11/27/23 [facility] [address] [facility] [address] [place] [address] [phone] Encounter Diagnosis Body mass index [BMI] 36.0-36.9, adult(Discharge Diagnosis) - 11/27/23 Bilateral primary osteoarthritis of hip(Discharge Diagnosis) - 11/27/23 Encounter for pre-operative examination.(Discharge Diagnosis) - 11/27/23 Discharge Disposition: Home or Self Care Attending Physician: RADHA Raines Kimberly A Referring Physician: MD Benito Wayne J Allergies, Adverse Reactions, Alerts Substance Reaction Severity Status penicillin elevated liver functions Act inna Assessment and Plan Extracted from: Title:Office Visit Note Author:RADHA Raines Kim berly A Date:11/27/23 1.Encounter for pre-operat inna examination. 58-year-old male presents today for his preoperative history and physical. He is scheduled to undergo a left hip total hip arthroplasty on 12/05/[address] Benito at [facility]. The patient has had a longstanding history of left hip pain that has been worsening with time. He has failed numerous conservative treatments including corticosteroid injections and PT. His pain is now affecting his ADLs. It is worse with weightbearing, including walking. He denies any numbness or tingling. Currently taking ASA 325mg in AM and Tramadol at bedtime. He does have CKD and follows with Dr. Marquis. Renal function is stable with GFR of 61 and Cr of 1.35. Requested by:Dr. Benito Planned surgery: (L) PATRICIA [X] Intermediate risk(intraperitoneal, intrathoracic, CEA, head/ neck, ortho, urologic, prostate) Exercise tolerance: 7-9 METS [Vigorous]:hiking hills; jogging; basketball; walking up stairs; tennis; jumping jacks Bleeding tendency:Denies h/o bleeding disorders or blood clots. Is on chronic anticoagulation with Xarelto. Substance use:None Prior anesthesia:No history of anesthesia complications with prior surgeries Revised Cardiac Risk Index: Score=0 or 1 [0] Higher Risk Surgery (intraperitoneal, intrathoracic, supra-inguinal vascular) [0] Ischemic Heart Disease [0] History of CHF [0] History of cerebrovascular disease [0] Insulin therapy for DM [0] Pre-op Cr >2 Total Score=0 Patient is considered medically optimized for the scheduled (L) PATRICIA with Dr. Benito on 12/05/23. He has been instructed to hold his ASA for 7 days prior to procedure and hold his Xarelto for 3 days prior to surgery. He is also to hold any vitamins or supplements for one week prior 2.Bilateral primary osteoarthritis of hip Please see #1. Patient is advised to schedule routine appt with Dr. Schmitt to discuss ongoing issues with hyperlipidemia and hyperuricemia. Immunizations Given and Recorded Vaccine Date Status Refusal Reason influenza virus vaccine, inactivated 07/15/23 Tate rded influenza virus vaccine, inactivated 08/02/20 Give n influenza virus vaccine, inactivated 07/17/18 Give n influenza virus vaccine, inactivated 08/28/16 Give n SARS-CoV-2 (COVID-19) mRNA BNT-162b2 vax 08/02/21 Recorded SARS-CoV-2 (COVID-19) mRNA BNT-162b2 vax 10/23/20 Recorded SARS-CoV-2 (COVID-19) mRNA BNT-162b2 vax 10/02/20 Recorded SARS-CoV-2 (COVID-19) mRNA-1273 vaccine 1 10/23/20 Recorded SARS-CoV-2 (COVID-19) mRNA-1273 vaccine 2 10/02/20 Recorded tetanus/diphtheria/pertuss, acel (Tdap) 11/30/18 R ecorded tetanus/diphtheria/pertuss, acel (Tdap) 08/25/13 G iven meningococcal conjugate vaccine 3 11/02/18 Recorde d measles/mumps/rubella virus vaccine 4 11/02/18 Rec orded hepatitis A adult vaccine 5 11/02/18 Recorded 1Result Comment: Same as previous Covid19- won't let me update to UltiZen any other way 2Result Comment: Pt would like product updated to UltiZen and unable to do that without removing and re-adding to chart. 3Result Comment: 2021-08-03: Historical information-source unspecified 4Result Comment: 2021-08-03: Historical information-source unspecified 5Result Comment: 2021-08-03: Historical information-source unspecified Medications allopurinol 100 mg oral tablet Start: 07/13/23 13:24:00 EST, See Instructions, Disp# 90 tab, Refills: 3, TAKE 1 TABLET DAILY, Pharmacy: [facility] Start Date: 07/13/23 Status: Ordered aspirin 325 mg oral delayed release tablet Start: 02/13/22 15:45:00 EDT, 3 tab, PO, Daily, PRN: as needed for pain Start Date: 02/13/22 Status: Ordered aspirin 81 mg oral delayed release tablet Start: 08/28/16 9:05:00 EST, 1 tab, PO, Daily, Disp# 100 tab, Refills: 30, given to patient Start Date: 08/28/16 Status: Ordered doxycycline monohydrate 50 mg oral capsule See Instructions, Disp# 90 cap, Refills: 3, TAKE 1 CAPSULE DAILY, Pharmacy: [facility] Start Date: 11/14/21 Status: Ordered Euflexxa 10 mg/mL intra-articular solution Start: 12/07/22 11:45:00 EDT, 20 mg =, intra-articular, q7days, Disp# 12 mL, Refills: 0, 6 syringesfor B/L knees. Please ship to physician's office: Enrique Conn. Tim. [address] [place] [address], [place] [address], Note to Pharmacy: B/L KNEE DJD M17.0, Pharmacy: A... Start Date: 12/07/22 Stop Date: 12/28/22 Status: Ordered Finacea 15% topical gel Start: 10/10/23 10:27:00 EST, 1 appl, topical, bid, Disp# 50 g, Refills: 3, Pharmacy: [facility] Start Date: 10/10/23 Status: Ordered fluticasone 50 mcg/inh nasal spray Start: 06/04/20 15:57:00 EDT, See Instructions, Disp# 96 g, Refills: 0, USE 2 INHALATIONS IN EACH NOSTRIL, TWICE DAILY, Pharmacy: [facility] Start Date: 06/04/20 Status: Ordered loratadine Start: 02/12/21 11:55:00 EDT Start Date: 02/12/21 Status: Ordered Multiple Vitamins oral tablet Start: 11/22/10 8:17:00, 1 tab, PO, Daily Start Date: 11/22/10 Status: Ordered Nature's Bounty Red Krill Oil 500 mg oral capsule Start: 08/20/17 14:26:00, 1 tab, PO, Daily Start Date: 08/20/17 Status: Ordered pantoprazole 40 mg oral delayed release tablet Start: 12/05/22 13:05:00 EDT, 1 tab, PO, Daily Start Date: 12/05/22 Status: Ordered traZODone 50 mg oral tablet Start: 02/13/23 14:01:00 EDT, See Instructions, Disp# 90 tab, Refills: 3, TAKE 1 TABLET AT BEDTIME,Pharmacy: [facility] Start Date: 02/13/23 Status: Ordered turmeric Start: 11/21/21 15:07:00 EDT Start Date: 11/21/21 Status: Ordered ubiquinone 100 mg oral capsule Start: 02/16/21 19:27:00 EDT, 1 cap, PO, Daily Start Date: 02/16/21 Status: Ordered valACYclovir 1 g oral tablet Start: 05/29/22 17:24:00 EDT, 2 tab, PO, q12h, Disp# 8 tab, Refills: 3, Pharmacy: [facility] Start Date: 05/29/22 Stop Date: 06/02/22 Status: Ordered Vitamin D3 Start: 02/14/12 19:13:00, 2,000 Int_Unit =, PO, Daily Start Date: 02/14/12 Status: Ordered Voltaren 1% topical gel Start: 01/20/22 15:41:00 EDT, 1 appl, topical, qid, Disp# 100 g, Refills: 5, not to exceed 8 grams/day/single joint of upper extremities not to exceed 32 grams/day, PRN: Pain, Pharmacy: [facility] Start Date: 01/20/22 Stop Date: 07/14/23 Status: Ordered Xarelto 20 mg oral tablet Start: 10/10/23 10:27:00 EST, 1 tab, PO, qPM, Disp# 90 tab, Refills: 3, DO NOT TAKE WITH IBUPROFEN----, Pharmacy: [facility] Start Date: 10/10/23 Status: Ordered Mental Status 11/27/23 Barriers to Learning one year None evide nt Mandatory Health Literacy Documentation Yes Health Literacy Communication Barriers N ever Primary Language Greenlandic Problem List Condition Confirmation Course Effective Dates Status H ealth Status Informant Non-insertional Achilles tendinopathy Confirmed Active ALLERGIC RHINITIS Confirmed Active Memory loss Confirmed Active Anxiety Confirmed Active BPH (benign prostatic hyperplasia) Confirmed Active Chest pain Confirmed Active CKD (chronic kidney disease) stage 3, GFR 30-59 ml/min Confirmed Active Flat feet Confirmed Active H/O: gout Confirmed Active History of kidney donation Confirmed Active History of colonic polyps Confirmed Active History of DVT of lower extremity Confirmed Active Hyperlipidemia Confirmed Active Hyperuricemia Confirmed Active Claudication of left lower extremity Confirmed Active Left atrial dilatation Confirmed Active Nail discoloration Confirmed Active NABILA (obstructive sleep apnea) 1 Confirmed Active Osteoarthritis Confirmed Active Osteoarthritis of left hip Confirmed Active Pain in left leg Confirmed Active Health care maintenance Confirmed Active Adult general medical exam Confirmed Active Encounter for pre-operative examination. Confirmed Active Post-phlebitic syndrome Confirmed Active Bilateral primary osteoarthritis of hip Confirmed Active Rosacea Confirmed Active Sleep apnea Confirmed Active Insomnia Confirmed Active [place]-neck deformity Confirmed Active Trigger finger, left little finger Confirmed Active Weight disorder Confirmed Active 1on auto-PAP Diagnosis Diagnosis Type Effective Dates Health Status Clinical Service Informant Body mass index [BMI] 36.0-36.9, adult Discharge Diagnosis 11/27/23 Non-Specified Bilateral primary osteoarthritis of hip Discharge Diagnosis 11/27/23 Encounter for pre-operative examination. Discharge Diagnosis 11/27/23 Procedures Procedure Date Related Diagnosis Body Site Status Colonoscopy 1 11/07/23 Completed Upper GI (gastrointestinal) endoscopy 2 12/01/22 Completed MRI of left ankle 3 11/10/21 Compl eted Exercise stress test 4 04/12/21 Co mpleted Colonoscopy 5, 6 03/25/21 Complete d Chest X-ray 7 02/14/21 Completed MRI of right ankle 8 07/18/18 Comp leted X-ray of left foot 9 04/25/17 Comp leted X-ray of right foot 10 04/25/17 Co mpleted Angiogram Chest CT 11 10/10/16 Com pleted Venous duplex Bilateral lowe r extremities 12 10/10/16 Completed Screening colonoscopy 13, 14 06/02/16 Completed Pelvis X-ray 15 04/17/16 Completed X-ray of lumbosacral spine 16 04/17/16 Completed X-ray 17 02/03/16 Completed Echocardiogram 18, 19 11/18/14 Com pleted Venous doppler left leg-neg for DVT 12/05/12 Completed Left achilles tendonitis 2010 Completed Ulnar collateral ligament of interphalangeal joint of thumb 20, 21 10/16/07 Completed Surgery-donor nephrectomy 1999 Completed s/p left nephrectomy 06/03/99 Comp leted vasectomy 09/03/97 Completed DNS (deviated nasal septum) repair 1995 Completed Ts and As - Tonsillectomy an d adenoidectomy 1995 Completed Left elbow-bone chip/spur Completed Surgery-left pinky Comple jose c 1The rectum, sigmoid colon, descending colon, splenic flexure, transverse colon, hepatic flexure, ascending colon, cecum and recto-sigmoid colon are normal. No specimens collected. Repeat in 5 years. 2Impression: -Mild severe reflux esophagitis with no bleeding -Gastritis. Biopsied -Normal examined duodenum 3Achilles tendon tendinopathy. No tear or retraction. Degenerative changes at the midfoot, hindfoot. 4REST ECHO FINDINGS Rest LV Ejection Fraction: 60 % Normal LV size and systolic function with no regional wall motion abnormalities at rest. Resting ejection fraction is 60%. No left ventricular hypertrophy. STRESS ECHO FINDINGS Normal LV wall motion response to exercise. Left ventricle becomes smaller and more vigorous with exercise. Improved global left ventricular function with exercise. Physiologic hemodynamic response to exercise. No chest pain. No significant arrhythmia. Heart rate recovery at 1 minute was 35 bpm. CONCLUSIONS Negative stress echocardiogram and EKG for ischemia at 101%MPHR. Above average exercise tolerance for age and gender, 118% of predicted, achieving 10.4 METs. Patient dosed self with Albuterol (90 mcg) - 2 puffs - prior to exercise. Dr. Norbert Mustafa MD (Electronically Signed) Final Date: 12 April 2021 16:03 Signature Line Final Signed by:DO Mustafa Jason D Signed (Electronic Signature):04/12/2021 4:03 p 5Repeat in 2 years d/t size of polyp. 6Pathology results: 1) Colon, sessile polyp, polypectomy: -hyperplastic polyp -negative for dysplasia and malignancy 2) Colon, polyp, polypectomy: -Traditional serrated adenoma -Negative for high grade dysplasia 3) Rectum, polyp, polypectomy: -Minute fragment showing hyperplastic mucosa -Negative for dysplasia and malignancy. 7Impression: No acute cardiopulmonary findings. 8Abnormal signal in sinus tarsi side. This can be seen with sinus tarsi eye syndrome. Tiny plantar calcaneal spur. Normal appearance of plantar fascia. Focal increase size of distal fibers of Achillestendon with normal signal. This is nonspecific but can be seen in the setting of mild tendinopathy. 9No acute fracture or dislocation of the left foot. 2.1 x 0.8 cm lucent expansile lesion within the proximal phalanx of the left second digit. Thislikely represents an enchondroma. 10No acute bony abnormality is seen in the right foot 111. Bilateral predominantly right-sided pulmonary arter filling defects. the findings are consistentwith pulmonary embolism. Several of these appear subacute 2. 4 mm right midle lobe pulmonary nodule. 12No evidence of acute DVT identified in the bilateral common femoral, deep femoral,femoral, popliteal, gastrocnemius,posterior tibial, peroneal,great saphenous or small saphenous veins Previously documented,chronic, recnalized DVT noted in a duplicate left femoral vein in the distal thigh 13adenoma 14one 3 mm polyp in proximal descending colon. Diverticulosis in sigmoid colon 15[facility] Impression: 1. Mild multilevel intervertebral disc degeneration and facet osteoarthritis [facility] Impression: 1. Mild multilevel intervertebral disc degeneration and facet osteoarthritis 17right foot Mild degenerative change of the intertarsal joints. No acute process. 18dilated right ventricle with normal pulmonary artery pressurest 19Mildly dilatated LA Repeat in 5 years rec 20done for a second time 08/19/2014 21repair Vital Signs Most recent to oldest [Reference Range]: 1 Height 180 cm (3/26/24 10:22 AM) Patient Weight 118.2 kg (11/27/23 10:22 AM) Body Mass Index 36.48 kg/m2 (11/27/23 10:22 AM) Heart Rate 68 bpm (11/27/23 10:22 AM) Respiratory Rate 18 br/min (11/27/23 10:22 AM) Blood Pressure 122/80mmHg (11/27/23 10:22 AM) Cuff Pulse Pressure 42 mmHg (11/27/23 10:22 AM) Social History Social History Type Response Smoking Status Never smoked cigaret sydni Sex Male FCM Outpt Note * RADHA Raines, Tala Ng: PERFORM Event Display: FCM Outpt Note Authored Date: [id number] Chief Complaint f/u from physical. clearance for hip sx, a week from tomorrow. History of Present Illness PRE-OPERATIVE EVALUTION 58-year-old male presents today for his preoperative history and physical. He is scheduled to undergo a left hip total hip arthroplasty on 12/05/[address] Benito at [facility]. The patient hashad a longstanding history of left hip pain that has been worsening with time. He has failed numerous conservative treatments including corticosteroid injections and PT. His pain is now affecting his ADLs. It is worse with weightbearing, including walking. He denies any numbness or tingling. He does have CKD and follows with Dr. Marquis. Renal function is stable with GFR of 61 and Cr of 1.35. Requested by:Dr. Benito Planned surgery: (L) PATRICIA [X] Intermediate risk(intraperitoneal, intrathoracic, CEA, head/ neck, ortho, urologic, prostate) Exercise tolerance: 7-9 METS [Vigorous]:hiking hills; jogging; basketball; walking up stairs; tennis; jumping jacks Bleeding tendency:Denies h/o bleeding disorders or blood clots. Is on chronic anticoagulation with Xarelto. Substance use:None Prior anesthesia:No history of anesthesia complications with prior surgeries Revised Cardiac Risk Index: Score=0 or 1 [0] Higher Risk Surgery (intraperitoneal, intrathoracic, supra-inguinal vascular) [0] Ischemic Heart Disease [0] History of CHF [0] History of cerebrovascular disease [0] Insulin therapy for DM [0] Pre-op Cr >2 Total Score=0 Review of Systems ROS per HPI Physical Exam Vitals & Measurements HR:68(Monitored) RR:18 BP:122/80 SpO2:98% HT:180cm WT:118.2kg WT:118.200kg(Dosing) BMI:36.48 PHQ2 Data(Data Documented on:11/27/2023 10:21) Emotional health assessment NEGATIVE General: Alert and oriented,No acute distress,Very pleasant Well groomed Eye: Pupils are equal, round and reactive to light,Extraocular movements are intact,Normal conjunctiva. HENT: Normocephalic, Neck: Supple,No lymphadenopathy. Respiratory: Lungs are clear to auscultation,Respirations are non- labored,Breath sounds are equal,Symmetrical chest wall expansion. Cardiovascular: Normal rate,Regular rhythm,No murmur,No gallop,No edema. Abdomen: Normoactive BS x 4. No R/G/R. No organomegaly. Soft, nontender, nondistended Lymphatics: No submandibular, anterior or posterior cervical adenopathy palpable. Musculoskeletal:No functional arthritic changes FROM Normal gait. Integumentary: Warm,[place]. No rashes or changing lesions. Neurologic: Alert,Oriented,Cranial Nerves II-XII are grossly intact. Cognition and Speech: Oriented,Speech clear and coherent,Functional cognition intact. Psychiatric: Cooperative,Appropriate mood & affect,Normal judgment. Assessment/Plan 1.Encounter for pre-operative examination. 58-year-old male presents today for his preoperative history and physical. He is scheduled to undergo a left hip total hip arthroplasty on 12/05/[address] Benito at [facility]. The patient hashad a longstanding history of left hip pain that has been worsening with time. He has failed numerous conservative treatments including corticosteroid injections and PT. His pain is now affecting his ADLs. It is worse with weightbearing, including walking. He denies any numbness or tingling. Currently taking ASA 325mg in AM and Tramadol at bedtime. He does have CKD and follows with Dr. Marquis. Renal function is stable with GFR of 61 and Cr of 1.35. Requested by:Dr. Benito Planned surgery: (L) PATRICIA [X] Intermediate risk(intraperitoneal, intrathoracic, CEA, head/ neck, ortho, urologic, prostate) Exercise tolerance: 7-9 METS [Vigorous]:hiking hills; jogging; basketball; walking up stairs; tennis; jumping jacks Bleeding tendency:Denies h/o bleeding disorders or blood clots. Is on chronic anticoagulation with Xarelto. Substance use:None Prior anesthesia:No history of anesthesia complications with prior surgeries Revised Cardiac Risk Index: Score=0 or 1 [0] Higher Risk Surgery (intraperitoneal, intrathoracic, supra-inguinal vascular) [0] Ischemic Heart Disease [0] History of CHF [0] History of cerebrovascular disease [0] Insulin therapy for DM [0] Pre-op Cr >2 Total Score=0 Patient is considered medically optimized for the scheduled (L) PATRICIA with Dr. Benito on 12/05/23. He has been instructed to hold his ASA for 7 days prior to procedure and hold his Xarelto for 3 days prior to surgery. He is also to hold any vitamins or supplements for one week prior 2.Bilateral primary osteoarthritis of hip Please see #1. Patient is advised to schedule routine appt with Dr. Schmitt to discuss ongoing issues with hyperlipidemia and hyperuricemia. Problem List/Past Medical History Ongoing Adult general medical exam ALLERGIC RHINITIS Anxiety Bilateral primary osteoarthritis of hip BPH (benign prostatic hyperplasia) Chest pain CKD (chronic kidney disease) stage 3, GFR 30-59 ml/min Claudication of left lower extremity Encounter for pre-operative examination. Flat feet H/O: gout Health care maintenance History of colonic polyps History of DVT of lower extremity History of kidney donation Hyperlipidemia Hyperuricemia Insomnia Left atrial dilatation Memory loss Nail discoloration Non-insertional Achilles tendinopathy NABILA (obstructive sleep apnea) Osteoarthritis Osteoarthritis of left hip Pain in left leg Post-phlebitic syndrome Rosacea Sleep apnea [place]-neck deformity Trigger finger, left little finger Weight disorder Historical Acute bronchitis Biceps tendonosis of right shoulder Complicated varicose veins Depression DVT (deep venous thrombosis) DVT, lower extremity, proximal Elevated blood-pressure reading without diagnosis of hypertension Knee pain, bilateral Labral tear of left hip joint Lateral epicondylitis Left knee DJD Left leg weakness Medial epicondylitis Osteoarthritis of right AC (acromioclavicular) joint Right knee DJD Right shoulder pain Procedure/Surgical History Colonoscopy| Service Date: 11/07/2023Upper GI (gastrointestinal) endoscopy| Service Date: 12/01/2022MRI of left ankle| Service Date: 07/13/2021xercise stress test| Service Date: 04/12/2021olonoscopy| Service Date: 03/25/2021hest X-ray| Service Date: 02/14/2021MRI of right ankle| Service Date: 07/18/2018X-ray of right foot| Service Date: 04/25/2017X-ray of left foot| Service Date: 04/25/2017Venous duplex Bilateral lower extremities| Service Date: 10/10/2016Angiogram Chest CT| Service Date: 10/10/2016Screening colonoscopy| Service Date: 06/02/2016PelvisX-ray| Service Date: 04/17/2016X-ray of lumbosacral spine| Service Date: 04/17/2016X-ray| Service Date: 02/03/2016Echocardiogram| Service Date: 11/18/2014Venous doppler left leg-neg for DVT| Service Date: 12/05/2012Left achilles tendonitis| Service Date: 2010Ulnar collateral ligament of interphalangeal joint of thumb| Service Date: 10/16/2007Surgery- donor nephrectomy| ServiceDate: 1999s/p left nephrectomy| Service Date: 06/03/1999vasectomy| Service Date: 09/03/1997Ts and As - Tonsillectomy and adenoidectomy| Service Date: 1995DNS (deviated nasal septum) repair| Service Date: 1995Su-left pinkyLeft elbow-bone chip/spur Medications allopurinol(allopurinol 100 mg oral tablet), See Instructions, 3 refills aspirin(aspirin 325 mg oral delayed release tablet), 975 mg= 3 tab, PO, Daily, PRN aspirin(aspirin 81 mg oral delayed release tablet), 81 mg= 1 tab, PO, Daily, 30 refills azelaic acid topical(Finacea 15% topical gel), 1 appl, topical, bid, 3 refills cholecalciferol(Vitamin D3), 2000 Int_Unit, PO, Daily diclofenac topical(Voltaren 1% topical gel), 1 appl, topical, qid, PRN, 5 refills doxycycline(doxycycline monohydrate 50 mg oral capsule), See Instructions fluticasone nasal(fluticasone 50 mcg/inh nasal spray), See Instructions loratadine multivitamin(Multiple Vitamins oral tablet), 1 tab, PO, Daily omega-3 polyunsaturated fatty acids(Nature's Bounty Red Krill Oil 500 mg oral capsule), 1 tab, PO, Daily pantoprazole(pantoprazole 40 mg oral delayed release tablet), 40 mg= 1 tab, PO, Daily rivaroxaban(Xarelto 20 mg oral tablet), 1 tab, PO, qPM, 3 refills sodium hyaluronate(Euflexxa 10 mg/mL intra-articular solution), 20 mg, intra- articular, q7days traZODone(traZODone 50 mg oral tablet), See Instructions turmeric ubiquinone(ubiquinone 100 mg oral capsule), 100 mg= 1 cap, PO, Daily valACYclovir(valACYclovir 1 g oral tablet), 2 g= 2 tab, PO, q12h, 3 refills Allergies penicillinelevated liver functions Social History Smoking Status Never smoked cigarettes Alcohol - Low Risk Use:Current Type:Beer, Wine, Liquor Frequency:1-2 times per year Average drinks per episode in last year:1 Employment/School Status:Employed 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 Colon polyps.: Father (Dx at 51 years). Diabetes mellitus: PGF. GLAUCOMA: Father. High Blood Pressure: Mother. Increased BMI...: Brother. Irregular heart beat: Father. Lumbar spinal stenosis: Father. Macular degeneration...: Father. Health Status Family Member(s) Brother: History is negative Immunizations Vaccine Date Status influenza virus vaccine, inactivated 07/15/2023 Recorded SARS-CoV-2 (COVID-19) mRNA BNT-162b2 vax 08/02/2021 Recorded SARS-CoV-2 (COVID-19) mRNA BNT-162b2 vax 10/23/2020 Recorded SARS-CoV-2 (COVID-19) mRNA BNT-162b2 vax 10/02/2020 Recorded influenza virus vaccine, inactivated 08/02/2020 Given tetanus/diphtheria/pertuss, acel (Tdap) 11/30/2018 Recorded meningococcal conjugate vaccine 11/02/2018 Recorded Comments : 2021-08-03: Historical information-source unspecified measles/mumps/rubella virus vaccine 11/02/2018 Recorded Comments : 2021-08-03: Historical information-source unspecified hepatitis A adult vaccine 11/02/2018 Recorded Comments : 2021-08-03: Historical information-source unspecified influenza virus vaccine, inactivated 07/17/2018 Given influenza virus vaccine, inactivated 08/28/2016 Given tetanus/diphtheria/pertuss, acel (Tdap) 08/25/2013 Given Recommendations Health Maintenance Pending(in the next year) Due Adult COVID-19 Vaccination due11/27/23Unknown Frequency Adult Social Determinants of Health Screening due11/27/23Unknown Frequency Pneumococcal Vaccine Adults and Adolescents with Chronic Illness due11/27/23One-time only Shingles Vaccine due11/27/23One-time only Due In Future Adult Influenza Vaccine not due until03/02/24and every 1year Satisfied(in the past 1 year) Satisfied Adult Influenza Vaccine on07/15/23.Satisfied by LIZY Moses Kelly Body Mass Index on11/27/23.Satisfied by SHAMA Dumont Kyla Electronic Signature on File Electronically Reviewed/Signed by: Tala Raines PA-C Author Signature Dt/Tm:11/27/2023 12:48 PM Department of Family Medicine [facility] Patient Care team information Care Team Personnel Name: RADHA Raines Kimberly A Position: Physician Asst Exmpt - Family Med Member Role: Lifetime Relationship Address: Address: [address] [place] [address] [place] Name: MD Schmitt Michael P Position: Physician - Family Med Member Role: Primary Care Provider Address: Address: [address] [place] [address] [place] Name: RADHA Rosenberg Lynn Position: Physician Switchboard Operator Receptionist Exempt - [facility] Member Role: Lifetime Relationship Address: Address: [address] [place] [address] Care Team Related Persons Name: JOES MICHAELS Address: [place] Address: [place], [place] Name: SEEMA MICHAELS Address: [place] Address: [address] [id number] Name: MARCUS MICHAELS Address: [place] Address: home [address] [place], [place] [id number]"
--- NOTE | 2023-12-05 10:57 | Orthopedic Progress Note ---
Date of Service December 05, 2023 Assessment & Plan Admission and Anticipated Discharge Date Admission Date: December 05, 2023 Orthopedic Progress Note Postop total hip replacement noncemented. Mobility implant. He tolerated procedure well. His postop x-rays were excellent. His dressing clean dry and intact neurovascular check limited by spinal. Family notified. Continue with care pathway. Will resume his anti coagulation at 50% of his normal doses for 4 days and then after that proceed with his normal dose.
--- NOTE | 2023-12-05 10:59 | Discharge Summary ---
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 Discharge Data Allergies Allergy/AdvReac Type Severity Reaction Status Date / Time Penicillins Allergy Intermediate Elevated Verified 12/05/23 05:54 liver enzymes Vaccinations None Consultations None Procedures Performed Operation Date: 12/05/23 07:00 Actual Procedures p Left Total Hip Arthroplasty with Dual Mobility Cup, Uncemented(Left) - Rudy Benito MD Ordered Studies X-rays Hospital Course (1) History of left hip replacement: Total Time Total Time Spent Total Time Spent (In Minutes): 5 Discharge Plan Discharge Items Patient Disposition: Home - Self-Care Reason For Visit: Left Hip Degenerative Joint Disease Discharge Diagnosis: Left hip s/p total hip replacement Condition on Discharge: Good Activity: Per Instructions section Lifting: Gradually increase as tolerated Bathing: Keep incision dry Sexual Activity: Wait until after follow-up appointment Exercise/Sports: Wait until after follow-up appointment Driving/Machine Use: Resume 3 days after discharge Weightbearing: Left partial Non-emergency contact: Surgeon Call non-emergency contact if: you have any medication questions, your pain is not controlled, your temperature is above 101.5, your wound has increased redness, your wound has increased drainage and your wound pain has increased Follow-up/Referrals: Daniel Schmitt [Primary Care Provider] - Diet: Regular Addtl Attending Provider Instructions: New Medicine: * You will likely be taking one or more of these medicines: 1. Percocet - Take, as directed, when you need it, every four to six hours to control your pain. 2. Iron Sulfate - Take three times each day for the month after surgery to help you replace the blood lost during surgery. 3. Xarelto - Thins your blood to lessen the chance of forming a blood clot. * The most common side effects of pain medicine and iron are nausea and constipation. If nausea or constipation is too much of a problem or if you have any questions about your new medicines or doses, call [facility] at . We will try to help you manage these issues. "VERY IMPORTANT TO READ AND REVIEW" Blood Clots and Blood Thinning Medicine: * You are given Xarelto during the immediate post-operative period to lessen the risk of blood clots forming in your legs and/or lungs. Pain: * The immediate post-operative period after hip replacement surgery is often quite painful. * You are given a prescription for pain medicine. You should take it, as directed, when you need it, especially before physical therapy and before going to bed. Pain that interferes with sleep is very common and can last several months. * You will likely need pain medicine for the first two to four weeks. It will not stop all of the pain. The pain will lessen and as you feel better, you may change to milder pain medicine such as Tylenol. * The most common side effects of pain medicine are nausea and constipation, so don't take more than you need. Physical Therapy: * Follow the "Hip Precautions Instructions." * In some cases, the psychotherapist social worker at the hospital will arrange to have a therapist come to your house for the first couple of weeks to help you learn these skills. * You need to practice on your own or with the help of a family member as needed. * When you learn these skills, most of the therapy can be done on your own. Home Exercise: * You were shown a series of exercises in the hospital. Do these exercises three to four times each day including the exercises you were shown in physical therapy. Walking: * Get up and walk several times each day. For the first four weeks, try not to stand or walk for more than one hour at a time. If you do stand or walk for more than one hour, you will not hurt anything, but your leg will likely swell. * As you feel comfortable, you may change from the walker or crutches to a cane and then to independent walking. SELF CARE INSTRUCTIONS AFTER TOTAL HIP REPLACEMENT Until the incision and soft tissues around your hip have healed, there is a possibility that the hip prosthesis could dislocate. A. Observe the following precautions to prevent dislocation: 1. Don't bend your hip greater than 90 degrees. 2. Avoid crossing your legs or ankles while standing or lying. 3. Sit with your feet placed 6 inches apart. 4. When sitting, keep your knees below your hips. Sit on a firm surface, avoid deep, soft chairs and couches. Use an elevated toilet seat in the bathroom. 5. Don't bend over at the waist. Use a long handled shoehorn and a sock aid to help you put on your shoes and socks. A ruffling machine operator can help you slate picker objects that are too high or too low to reach. 6. Keep car riding to a minimum for at least one month after surgery. B. Your balance may be shaky for a while. Use crutches or a walker until directed by your doctor. C. Use hand rails when walking on stairs. D. Wear low heeled shoes with non-slip soles. E. Be sure that your floors are free of things that could trip you - throw rugs, electrical cords, small objects. Avoid wet and waxed floors, especially with crutches and canes. F. Try to walk several times a day with rest periods between. G. Continue with all the exercises taught to you in the hospital. Again, make walking a part of your daily routine. VERY IMPORTANT TO READ AND REVIEW A. Take Xarelto (blood thinning medication) as directed by your doctor. B. There are a few signs you need to watch for after you are home. If you notice any of the followin. Increased severe hip pain. Some pain is expected especially when you exercise. 2. Increased swelling in your leg or knee; pain or swelling of the calf muscle in either lower leg. 3. Any fluid drainage from the incision. 4. Shortness of breath or chest pain. TEDs/Elastic Stockings: * The white elastic stockings help limit swelling and prevent blood clots from forming in your legs. The more you wear them, the more they work. * Wear them for six weeks. Prevention of Infection: * Take antibiotics one hour before any dental cleaning, dental work, urological procedure, gastrointestinal procedure or any invasive surgery in order to prevent your new joint from getting infected. * You may get the antibiotics from the doctor performing the procedure or we will call in a prescription to the pharmacy of your choice. Call the office for a prescription at least 2 days prior to your appointment. Things to Watch For: * Drainage from the incision site that occurs more than one week after your surgery. * Severely increased leg pain or swelling. * Increased redness at the incision site. * Fever above 101 degrees Fahrenheit. * Unusual chest pain or shortness of breath. * Unusual pain or burning with urination. Use your walker when ambulating You will take a half strength dose of Xarelto for the first 5 days. After that, resume your normal 20 mg daily dose Follow-up in the office in 2 weeks as scheduled for staple removal Sleep with the pillow between your legs at all times, including when napping Pending Studies at Discharge: Yes (Bone pathology) Studies:: Bone pathology Stand-Alone Forms: My [facility], Smoking Cessation Medications and DC Order Prescriptions: No Action allopurinol 100 mg tablet 100 mg PO QAM aspirin 325 mg tablet 975 mg PO QAM PRN (Reason: Pain) omega-3 fatty acids [Fish Oil Concentrate] 1,000 mg capsule 1,000 mg PO QAM fluticasone propionate [Flonase Allergy Relief] 50 mcg/actuation spray,suspension 1 sprays INTNAS BID PRN (Reason: sinus congestion) trazodone 50 mg tablet 50 mg PO HS Xarelto 20 mg tablet 20 mg PO QPM krill oil 500 mg capsule 500 mg PO QAM doxycycline hyclate 50 mg Tablet 50 mg PO DAILY PRN (Reason: Rash) albuterol sulfate [ProAir HFA] 90 mcg/actuation Hfa Aerosol Inhaler 1 puff INHALATION QID PRN (Reason: Shortness Of Breath) zinc Tablet,Chewable 1 tab PO HS cholecalciferol (vitamin D3) [Vitamin D3] 50 mcg (2,000 unit) Capsule 50 mcg PO Q OTHER DAY Men 50 Plus Multivitamin 300-600-300 mcg Tablet 1 tab PO QAM coenzyme Q10 [Co Q-10] 100 mg Capsule 150 mg PO Q OTHER DAY pantoprazole 40 mg tablet,delayed release (DR/EC) 40 mg PO QPM azelaic acid [Finacea] 15 % gel 1 applic TOPICAL DAILY PRN (Reason: Acne) aspirin 81 mg Tablet 81 mg PO DAILY Rx Instructions: Only takes if not taking the Aspirin 325mg dose gentamicin 0.3 % drops 2 drp DAILY Rx Instructions: Apply to affected area daily at bedtime as directed. Placed in right thumb nail magnesium 100 mg Tablet 100 mg PO DAILY tramadol 50 mg Tablet 50 mg PO Q6H PRN (Reason: Pain) acetaminophen [Tylenol] 325 mg Tablet 650 mg PO TID PRN (Reason: Pain) Discharge Orders: Discharge Order (Routine); Ordered 12/06/23 Ordered By: Rudy Benito Admission Data Admit Date/Time: 12/05/23 08:58 Attending Provider: Rudy Benito Admit Provider: Rudy Benito Primary Care Provider: Daniel Schmitt Other Providers: [facility]
[2023-12-05] MEDS: HYDROmorphone INJ 0.5 MG/0.5 ML SYR IV PRN (13:15)
[2023-12-05] MEDS: DOCUSATE SODIUM 100 MG CAP PO SCH (13:22)
[2023-12-05] MEDS: MULTIVITAMIN TAB PO SCH (13:22)
[2023-12-05] MEDS: SODIUM CHLORIDE 0.9% 1,000 ML IV SCH (13:23)
--- NOTE | 2023-12-05 13:48 | Orthopedic Progress Note ---
Date of Service December 05, 2023 Assessment & Plan Admission and Anticipated Discharge Date Admission Date: December 05, 2023 Orthopedic Progress Note Postop check doing well has normal femoral sciatic nerve function wound dressing clean dry and intact postop x-rays look excellent. Saline lock IV. Eating well.
[2023-12-05] MEDS: oxyCODONE HCL IR 5 MG TAB (IMMEDIATE RELEASE) PO PRN (13:55)
[2023-12-05] MEDS: allopurinoL 100 MG TAB PO SCH (14:47)
[2023-12-05] MEDS: ceFAZolin 2000MG 2,000 MG/15 ML SYR IV SCH (14:58)
[2023-12-05] MEDS: ACETAMINOPHEN 500 MG TAB PO SCH (14:58)
[2023-12-05] MEDS: FERROUS GLUCONATE 324 MG TAB PO SCH (17:04)
[2023-12-05] MEDS: ASCORBIC ACID 500 MG TAB PO SCH (17:04)
[2023-12-05] MEDS: SENNA 8.6 MG TAB PO SCH (20:22)
[2023-12-05] MEDS: traZODone HCL 50 MG TAB PO SCH (20:22)
[2023-12-05] MEDS: GENTAMICIN SULFATE 0.3% OP SOLN 5 ML BTL TOP SCH (20:23)
[2023-12-05] MEDS: PANTOprazole 40 MG TAB PO SCH (20:23)
--- NOTE | 2023-12-06 06:17 | Orthopedic Progress Note ---
Date of Service December 06, 2023 Assessment & Plan Admission and Anticipated Discharge Date Admission Date: December 05, 2023 Orthopedic Progress Note Sitting in his chair. States his leg feels . He has full femoral and sciatic nerve function encouraged him to be more active and more proactive. Needs to do more incentive spirometer. Vital signs are stable. He is afebrile 37 1. Again his dorsiflexion of his ankle and plantarflexion of his ankle is all normal as well as his knee extension. He is getting more confident. Is requesting tramadol rather than Oxy codon. Will make that change. Will inform the PA. Discharge on tramadol. Hold the half strength dose of his anticoagulant for 4 to 5 days and then go back to his normal dose. Instructed to call office if he needed
[2023-12-06] MEDS: traMADol HCL 50 MG TABLET PO STA (06:24)
[2023-12-06 08:17] LABS: Basophils # (auto) 0.02 K/uL (0.00-0.20); Basophils % (auto) 0.2 %; Hematocrit (blood only) 40.5 % (42.0-52.0); Immature Granulocytes # (auto) 0.03 K/uL (0.01-0.20); Immature Granulocytes % (auto) 0.3 %; Lymphocytes # (auto) 0.95 K/uL (1.20-3.40); Lymphocytes % (auto) 10.9 %; Mean Corpuscular Hemoglobin 30.7 pg (25.0-34.0); Mean Corpuscular Hgb Conc 34.6 g/dL (32.0-36.0); Mean Corpuscular Volume 88.8 fL (80.0-100.0); Mean Platelet Volume 11.1 fL (9.4-12.4); Monocytes # (auto) 1.03 K/uL (0.11-0.59); Monocytes % (auto) 11.8 %; Neutrophils # (auto) 6.72 K/uL (1.40-6.50); Neutrophils % (auto) 76.8 %; Platelet Count 175 K/uL (130-400); RDW Coefficient of Variation 13.4 % (11.5-14.5); RDW Standard Deviation 43.8 fL (36.4-46.3); Red Blood Count 4.56 M/uL (4.70-6.10); White Blood Count 8.75 K/ul (4.8-10.8)
[2023-12-06] MEDS: ASPIRIN 81 MG ECTAB PO SCH (08:20)
[2023-12-06] MEDS: dexAMETHasone 10 MG in SYRINGE 0 ML IV SCH (08:20)
[2023-12-06] MEDS: RIVAROXABAN 10 MG TABLET PO SCH (08:21)
[2023-12-06 09:13] LABS: BUN Creatinine Ratio 16.8 (10-20); Calcium 9.4 mg/dl (8.6-10.3); Creatinine Clr Calc Pharmacy 65.4 ml/min; Est GFR (African American) 56.4 ml/min; Est GFR (Non-African American) 48.6 ml/min
--- NOTE | 2023-12-06 09:58 | Orthopedic Progress Note ---
Date of Service December 06, 2023 Assessment & Plan (1) History of left hip replacement: Plan: The patient was educated regarding today's findings. Conservative care measures were discussed. His postsurgical dressings were changed today by me. These can remain in place until Sunday, when they can be changed by home health nursing as needed for soiling. Importance of getting up and moving every hour was discussed at length with the patient. Prescription for tramadol was sent to his pharmacy. The patient states it works better for him than oxycodone. He is aware that it is renally cleared, but he states he has taken it in the past even with his solitary kidney. He is already on Xarelto daily. He will take a half dose at 10 mg for the next 4 days, and then resume his normal dose of 20 mg daily. He has a pill cutter at home and states he can do this without a new prescription. Follow-up in the office in 2 weeks as scheduled for staple removal Use the walker when ambulating and standing. Admission and Anticipated Discharge Date Admission Date: December 05, 2023 Subjective This 58-year-old male seen today in his room. He is 1 day status post left total hip arthroplasty. He states he is having some trouble with pain. He has been in his bedside chair since around 2 AM. He denies any chest pain, shortness of breath, nausea, vomiting, or abdominal pain. He denies any numbness or tingling. He admits that his hip is more painful than he anticipated. Review of Systems Review of Systems: Unchanged from yesterday. Physical Exam Physical Exam: General: Well-developed, well-nourished, middle-aged male, in obvious discomfort. No acute distress. Sitting in a bedside chair. Alert and oriented. Rises from a chair with some difficulty, but is able to stand on his own. Skin: Warm and dry with good turgor. He has a postsurgical dressing in place on the left hip. Upon removal, there is scant dried blood on the inner dressings. Nunda are in place. Wound edges are well-approximated. No ecchymosis or edema yet. No active bleeding. Musculoskeletal: The patient has intact motor function of the left hip. He is able to bear weight. He is able to ambulate to the bathroom using his walker and my minimal assistance. There is also intact motor function of the left knee and ankle without deficit. Neurologic: Gross sensation is intact across the left leg by soft touch. Peripheral pulses are 2+. Results & Data Vital Signs (Past 12 Hours) Vital Signs Temp Pulse Resp BP Pulse Ox O2 Del Method 12/06/23 07:17 36.6 C 91 H 16 125/80 92 Room Air 12/06/23 05:30 37.1 C 12/06/23 03:06 36.8 C 12/06/23 02:30 38.1 C H 102 H 18 147/87 H 93 CPAP 12/05/23 22:12 36.7 C 63 20 144/77 H 98 Room Air Laboratory Results CBC obtained today shows a white count of 8.75. H&H of 14.0 and 40.5. Platelets 175,000. PRP obtained this morning shows a sodium 135, potassium 4.0. CO2 21. Anion gap of 10. BUN of 26 which is consistent with his baseline. Creatinine 1.55 which is mildly elevated compared to his baseline. Glucose 129.
[2023-12-06] MEDS: traMADol HCL 50 MG TABLET PO PRN (10:26)
== END 2023-12-06 12:07 | disposition home health service (06) ==
LOC: 3E 05:24 → ASU 05:24

== ENCOUNTER 2025-05-06 15:16 | Inpatient (IN) ==
[2025-05-06 16:06] LABS: Hematocrit (blood only) 45.0 % (42.0-52.0); Hemoglobin 15.5 g/dl (14.0-18.0); Immature Granulocytes # (auto) 0.02 K/uL (0.01-0.20); Immature Granulocytes % (auto) 0.3 %; Mean Corpuscular Hemoglobin 30.8 pg (25.0-34.0); Mean Corpuscular Volume 89.3 fL (80.0-100.0); Platelet Count 191 K/uL (130-400); RDW Standard Deviation 44.1 fL (36.4-46.3); Red Blood Count 5.04 M/uL (4.70-6.10); White Blood Count 6.37 K/ul (4.8-10.8)
--- NOTE | 2025-05-06 16:19 | XRay Report ---
Chest radiograph, one view History: Chest pain Comparison: None Findings: Single AP view of the chest performed. No focal consolidation or pleural effusion. No pneumothorax. The cardiomediastinal silhouette is within normal limits. Normal pulmonary vascularity. No evidence for lymphadenopathy. No visualized bony or soft tissue abnormality. Impression: Normal chest radiograph Electronically signed by Raghu Delaney 05-06-2025 4:18 PM
[2025-05-06 16:22] LABS: Alanine Aminotransferase 30.0 U/L (7-52); Albumin Globulin Ratio 1.2 (0.9-2); Alkaline Phosphatase 51.0 U/L (34-104); Anion Gap 8.0 (3-11); Bilirubin,Total 0.7 mg/dl (0.2-1.0); Blood Urea Nitrogen 24.0 mg/dl (6-23); Calcium 9.8 mg/dl (8.6-10.3); Carbon Dioxide 27.0 mmol/L (21-32); Chloride 101.0 mmol/L (98-107); Creatinine Clr Calc Pharmacy 70.3 ml/min; Globulin 3.6 gm/dl (2.5-4.0); Glucose 88.0 mg/dl (70-99(Fasting)); Potassium 4.1 mmol/L (3.5-5.1); Sodium 136.0 mmol/L (136-145); Total Protein 7.9 gm/dl (6.0-8.3)
[2025-05-06 16:37] LABS: INR 1.0 (0.9-1.1); Partial Thromboplastin Time 26 Seconds (21-31); Prothrombin Time 10.8 Seconds (9.0-12.0)
--- NOTE | 2025-05-06 16:57 | Emergency Department Note ---
Impression & Plan Chest pain, Pulmonary embolism ED Provider Note HISTORY OF PRESENT ILLNESS: Patient is a 60-year-old male presenting with chest pain. Patient reports he had a heart catheterization yesterday and had 2 stents put in. He states that he woke up today and had some pain in his chest and his lower neck. He states the pain seems to radiate into his shoulder blades and he feels "foggy." He states that he took nitro at 1400 while talking with his primary care provider, and his PCP referred him to the emergency department for further evaluation. He states that the nitro seem to help his pain and on arrival to the emergency department he reports his pain is very minimum on the left side of his chest. Patient reports that his current pain is a 1-2 out of 10. He reports that he was previously on Xarelto for history of provoked DVTs. He states he has had 2 provoked DVTs in the past. He held his Xarelto for 2 days prior to his heart catheterization. He states that he was reading his discharge instructions and was instructed that if he had any of the symptoms that he was having, that he should present to the emergency department. Patient denies any significant shortness of breath. He does report having a bit of a headache and some "spots" in the vision of his right eye after his catheterization yesterday, that seem to go away and then returned again this afternoon when he had the chest pain. Patient reports he has a previous history of PEs back in the early after knee surgery. Patient was discharged post catheterization on aspirin and Plavix. ROS: as above PHYSICAL EXAM: Constitutional: Patient appears in no acute distress. HENT: Head: Normocephalic and atraumatic. Eyes: EOMI, PERRL Mouth/Throat: Mucous membranes moist. Neck: Trachea midline. Neck supple. Cardiovascular: RRR, No murmurs, rubs or gallops. Intact distal pulses. Pulmonary/Chest: No respiratory distress. Breath sounds clear and equal bilaterally. No wheezes or rales. Abdominal: Abdomen soft, no tenderness, rebound or guarding. Musculoskeletal: No edema, tenderness or deformity noted. Skin: Warm and dry. No rash, erythema, pallor or cyanosis Psychiatric: Appropriate mood and affect for situation. Neurological: Alert and keenly responsive. CN II-XII grossly intact, moving all extremities equally and fully. MDM: - Vitals signs showed hypertension - History obtained via patient. History as above. - Chronic conditions affecting care: HTN; DVT; CAD (s/p PCI); CKD (pt has one kidney) - Differential diagnoses include, but are not limited to: Acute coronary syndrome; pulmonary embolism; dissection; tension pneumothorax; esophageal rupture; pneumonia - Order placed for continuous cardiac monitoring. At this time, monitor showed rate of 77 bpm with normal sinus rhythm, per my interpretation. - External medical records reviewed. - EKG image interpreted by myself showed normal sinus rhythm. Rate 75 bpm. QT 358. No acute ischemic changes. - Laboratory workup interpreted by myself showed normal WBC; stable hemoglobin; normal PT/INR; CKD (Cr 1.5); elevated troponin (119.7) - CXR image reviewed and interpreted by myself is negative for pneumothorax or pneumonia, per my interpretation. - CT head wo contrast negative for acute pathology - Patient does have 1 solitary kidney. Did have a thorough discussion with the patient about concern for potential pericardial effusion or PE postcatheterization as a source for his pain. After a educated discussion, patient was agreeable to obtaining a CT scan to rule out vascular etiologies in his chest. - CT PE showed small linear filling defect in the right lower lobe posterior segmental and subsegmental branches concerning for small pulmonary embolism. Noted to have some mild cardiac enlargement without evidence of heart strain. - Did discuss with the patient that he had an elevated troponin level. I did discuss this could this could be secondary to his heart catheterization yesterday. His repeat troponin has trended down. - Patient started on heparin drip for PE. - Discussion was had with telephonic case manager about patient's case and need for admission - Hospitalist consulted for admission at 20:34 - Patient admitted to [facility] for further evaluation and management. ASSESSMENT AND PLAN: Diagnosis: chest pain; pulmonary embolism Plan: admit Past Med/Surg History Problem List (Updated 05/06/25 @ 20:01 by Josette Lindsey MD) Pulmonary embolism (Acute) Chest pain (Acute) Hand pain Sciatica Elevated PSA Arthritis Sciatic nerve injury Insomnia Obstructive sleep apnea History of left hip replacement Hypercholesteremia Esophagitis Odynophagia Screening PSA (prostate specific antigen) BPH with obstruction/lower urinary tract symptoms Dermatologic problem Vitamin D deficiency Hypertension Swelling of finger joint of right hand Chronic kidney disease Right shoulder pain S/P arthroscopy of right shoulder Encounter for pre-operative examination Impingement syndrome of right shoulder Rupture of proximal biceps tendon Bilateral hip joint arthritis Difficulty swallowing REASON FOR EGD ON 12/01/22 History of colon polyps Medical History GERD (gastroesophageal reflux disease) detention (current) use of anticoagulants BPH (benign prostatic hyperplasia) Hypertension History of COVID-19 (~07/2022) Osteoarthritis Cardiac murmur Asthma Sleep apnea Pulmonary embolism (~2016) Deep vein thrombosis Surgical History S/P arthroscopy of right shoulder Hx of hand surgery Hx of elbow surgery Hx of hand surgery Hx of thumb surgery History of Achilles tendon repair Hx of vasectomy History of colonoscopy History of nephrectomy, left History of nasal septoplasty History of tonsillectomy Family History Grandfather (Paternal) Diabetes Mother Osteoarthritis Father Osteoarthritis Other No family history of adverse response to anesthesia Social History Smoking Status: Never smoker Second Hand Exposure: No; Do You Dip or Chew Tobacco: No; Hx Alcohol Use: Yes (Rarely) Alcohol type: beer, wine and hard liquor Hx Substance Use: No Preferred Language: Honduran Communication Ability: Effective Visual Impairment: No Limitations Hearing Ability: Normal [employer] Equipment Technician Required: No Beliefs That Will Affect Care: None marital status: Current Living Situation: Family current occupation: [employer] How many Children do You have: 3 Feels Safe at Home: Yes Assistive Devices: Walker Allergies Allergies Allergy/AdvReac Type Severity Reaction Status Date / Time Penicillins Allergy Intermediate Elevated Verified 04/29/25 11:24 liver enzymes Home Meds Home Medications Medication Instructions Recorded Confirmed allopurinol 100 mg tablet 100 mg PO QAM 08/13/19 04/29/25 fluticasone propionate 50 1 sprays intranasal BID PRN sinus 08/13/19 04/29/25 mcg/actuation nasal congestion spray,suspension (Flonase Allergy Relief) omega-3 fatty acids 1,000 mg 1,000 mg PO QAM 08/13/19 04/29/25 capsule (Fish Oil Concentrate) rivaroxaban 20 mg tablet (Xarelto) 20 mg PO QPM 08/13/19 04/29/25 trazodone 50 mg tablet 50 mg PO HS 08/13/19 04/29/25 albuterol sulfate 90 mcg/actuation 1 puff inhalation QID PRN 09/09/19 04/29/25 aerosol inhaler (ProAir HFA) Shortness Of Breath cholecalciferol (vitamin D3) 50 50 mcg PO Q OTHER DAY 03/22/21 04/29/25 mcg (2,000 unit) capsule (Vitamin D3) [id number] 300 mcg-K 60 1 tab PO QAM 03/22/21 04/29/25 mcg-lycop 600 mcg-lutein 300 mcg tablet (Men 50 Plus Multivitamin) zinc 1 tab PO HS 03/22/21 04/29/25 coenzyme Q10 100 mg capsule (Co 150 mg PO Q OTHER DAY 03/25/21 04/29/25 Q-10) krill oil 500 mg capsule 500 mg PO QAM 04/13/21 04/29/25 tramadol 50 mg tablet 50 mg PO Q6H PRN Pain 10/26/23 04/29/25 azelaic acid 15 % topical gel 1 applic topical DAILY PRN Acne 11/05/23 04/29/25 (Finacea) acetaminophen 325 mg tablet 650 mg PO TID PRN Pain 11/07/23 04/29/25 (Tylenol) aspirin 81 mg tablet 81 mg PO DAILY 12/05/23 04/29/25 magnesium 100 mg tablet 100 mg PO DAILY 12/05/23 04/29/25 pantoprazole 40 mg tablet,delayed 40 mg PO QPM PRN 12/02/24 04/29/25 release gabapentin 300 mg capsule 400 mg PO TID 04/07/25 04/29/25 metformin 500 mg tablet,extended 500 mg PO QPM 04/07/25 04/25/25 release 24 hr pravastatin 10 mg tablet 10 mg PO DAILY 04/07/25 04/25/25 doxycycline hyclate 100 mg capsule mg PO 04/29/25 04/29/25 Previous Rx's Medication Instructions Recorded gentamicin 0.3 % eye drops 2 drp ophthalmic (eye) DAILY #5 mL 03/23/25 diclofenac sodium 1 % topical gel 2 g topical QID #200 grams 04/13/25 (Voltaren Arthritis Pain) duloxetine 30 mg capsule,delayed 30 mg PO DAILY #30 caps 04/13/25 release colchicine 0.6 mg tablet 0.6 mg PO .COMPLEX #10 tabs 04/25/25 clobetasol 0.05 % topical cream 1 applic topical BID #90 grams 04/29/25 Results & Data (ED) Vital Signs Vital Signs - 24 hr 05/06/25 15:36 05/06/25 17:16 05/06/25 17:17 Temperature 36.7 C Temperature Source Temporal Artery Scan Pulse Rate 90 Pulse Rate [Apical] 78 Respiratory Rate 18 12 Respiratory Effort / Characteristics Non-Labored Spontaneous Respiratory Depth Normal Respiratory Pattern Regular Blood Pressure 152/89 H Blood Pressure [Left Arm] 170/104 H Blood Pressure Mean 110 Blood Pressure Mean [Left Arm] 126 Pulse Oximetry 97 98 96 Oxygen Delivery Method Room Air Room Air Room Air Sepsis Recent Fever Within 48 Hours No Sepsis New/Unexplained Change in Mental Status N/A Sepsis Action Taken by Nursing No Action Required 05/06/25 17:17 Temperature Temperature Source Pulse Rate 77 Pulse Rate [Apical] Respiratory Rate 17 Respiratory Effort / Characteristics Respiratory Depth Respiratory Pattern Blood Pressure Blood Pressure [Left Arm] Blood Pressure Mean Blood Pressure Mean [Left Arm] Pulse Oximetry 97 Oxygen Delivery Method Room Air Sepsis Recent Fever Within 48 Hours Sepsis New/Unexplained Change in Mental Status Sepsis Action Taken by Nursing Laboratory Data 05/06/25 15:44 05/06/25 15:44 Lab Results 05/06/25 05/06/25 Range/Units 15:44 17:40 WBC 6.37 (4.8-10.8) K/ul RBC 5.04 (4.70-6.10) M/uL Hgb 15.5 (14.0-18.0) g/dl Hct 45.0 (42.0-52.0) % MCV 89.3 (80.0-100.0) fL MCH 30.8 (25.0-34.0) pg MCHC 34.4 (32.0-36.0) g/dL RDW Std Deviation 44.1 (36.4-46.3) fL RDW Coeff of [place] 13.5 (11.5-14.5) % Plt Count 191 (130-400) K/uL MPV 10.4 (9.4-12.4) fL Immature Gran % (Auto) 0.3 % Neut % (Auto) 63.8 % Lymph % (Auto) 25.4 % Haines % (Auto) 8.6 % Eos % (Auto) 1.4 % Baso % (Auto) 0.5 % Neut # (Auto) 4.06 (1.40-6.50) K/uL Lymph # (Auto) 1.62 (1.20-3.40) K/uL Haines # (Auto) 0.55 (0.11-0.59) K/uL Eos # (Auto) 0.09 (0.00-0.50) K/uL Baso # (Auto) 0.03 (0.00-0.20) K/uL Immature Gran # (Auto) 0.02 (0.01-0.20) K/uL PT 10.8 (9.0-12.0) Seconds INR 1.0 (0.9-1.1) APTT 26 (21-31) Seconds PTT Ratio 1.0 Sodium 136 (136-145) mmol/L Potassium 4.1 (3.5-5.1) mmol/L Chloride 101 (98-107) mmol/L Carbon Dioxide 27 (21-32) mmol/L Anion Gap 8 (3-11) BUN 24 H (6-23) mg/dl Creatinine 1.50 H (0.6-1.4) mg/dl Est Cr Clr Drug Dosing 70.3 ml/min eGFR 52.97 BUN/Creatinine Ratio 16.0 (10-20) Glucose 88 (70-99(Fasting)) mg/dl Calcium 9.8 (8.6-10.3) mg/dl Total Bilirubin 0.7 (0.2-1.0) mg/dl AST 21 (13-39) U/L ALT 30 (7-52) U/L Alkaline Phosphatase 51 (34-104) U/L Troponin I High Sens 119.7 H* 87.0 H* D (0-20) pg/ml Total Protein 7.9 (6.0-8.3) gm/dl Albumin 4.3 (3.4-5.0) gm/dl Globulin 3.6 (2.5-4.0) gm/dl Albumin/Globulin Ratio 1.2 (0.9-2) Administered Medications Discontinued Medications Ioversol (Optiray 320 125ml) 115 ml IV ONCE ONE Stop: 05/06/25 18:34 Last Admin: 05/06/25 18:34 Dose: 115 ml Documented By: ANDRÉS Imaging Data Radiologist's Impression: Chest X-Ray 05/06/25 15:52 Chest radiograph, one view History: Chest pain Comparison: None Findings: Single AP view of the chest performed. No focal consolidation or pleural effusion. No pneumothorax. The cardiomediastinal silhouette is within normal limits. Normal pulmonary vascularity. No evidence for lymphadenopathy. No visualized bony or soft tissue abnormality. Impression: Normal chest radiograph Electronically signed by Raghu Delaney 05-06-2025 4:18 PM Chest CTA 05/06/25 17:52 CT ANGIOGRAM of the CHEST with and without contrast. HISTORY: Chest pain TECHNIQUE: Enhanced and precontrast CT examination of the chest was performed using aortic protocol. IV CONTRAST: 100 mL of OMNIPAQUE 300 COMPARISON: None FINDINGS: PULMONARY ARTERIES: There is a small linear filling defect in the right lower lobe posterior segmental and subsegmental branches (series 10, image [id number]) LYMPH NODES: No lymphadenopathy by size criteria. CARDIOVASCULAR: Mildly enlarged cardiac size. Trace pericardial effusion. No aortic aneurysm. Coronary stents There are coronary artery calcifications in keeping with coronary artery disease. Small area of myocardial thinning in the left ventricular apex may be due to an age-indeterminate myocardial infarction MEDIASTINUM: No solid or cystic mediastinal masses. The esophagus is normally decompressed. LUNGS/PLEURA: The central tracheo-bronchial tree is patent. No mass or consolidation identified. No pleural effusion or pneumothorax. No suspicious pulmonary nodules. BONES: No suspicious osseous lesions. VISUALIZED LOWER NECK: Unremarkable. VISUALIZED UPPER ABDOMEN: Right renal cyst. Left nephrectomy changes. IMPRESSION: Small linear filling defect in the right lower lobe posterior segmental and submental branches may represent a small pulmonary embolism. Mild cardiac enlargement without right heart strain. Small area of myocardial thinning in the left ventricular apex may be due to an age-indeterminate myocardial infarction No acute aortic process identified. Electronically signed by Thaddeus Youngblood 05-06-2025 7:[address] 05/06/25 17:52 CT HEAD: HISTORY: Altered mental status. TECHNIQUE: Noncontrast CT examination of the head is performed. Coronal and sagittal reformats were created. COMPARISON: None FINDINGS: There is no evidence of intracranial hemorrhage, focal mass effect or midline shift. No fluid collection is identified. The ventricular system is midline and symmetric. No evidence of acute major vascular territory infarction. Mild chronic white matter ischemic changes. No calvarial fracture is identified. The paranasal sinuses and mastoids are well aerated. IMPRESSION: No acute intracranial process identified. Electronically signed by Thaddeus Youngblood 05-06-2025 7:10 PM Discharge Plan Visit Data Chief Complaint: Cardiac Assessment Stated Complaint: COMPLICATIONS FROM HEART CATH ED Provider: Josette Lindsey Discharge Problem: Chest pain, Pulmonary embolism Condition: Fair Forms Stand Alone Forms: [facility] Prescriptions Prescriptions: No Action gentamicin 0.3 % drops 2 drp ophthalmic (eye) DAILY Qty: 5 0RF Rx Instructions: Apply to affected area daily at bedtime as directed. Placed in right thumb nail duloxetine 30 mg capsule,delayed release(DR/EC) 30 mg PO DAILY Qty: 30 0RF allopurinol 100 mg tablet 100 mg PO QAM omega-3 fatty acids [Fish Oil Concentrate] 1,000 mg capsule 1,000 mg PO QAM fluticasone propionate [Flonase Allergy Relief] 50 mcg/actuation spray,suspension 1 sprays INTNAS BID PRN (Reason: sinus congestion) trazodone 50 mg tablet 50 mg PO HS Xarelto 20 mg tablet 20 mg PO QPM krill oil 500 mg capsule 500 mg PO QAM Hold Instructions: Resume on 01/04/24. gabapentin 300 mg capsule 400 mg PO TID pravastatin 10 mg tablet 10 mg PO DAILY metformin 500 mg tablet extended release 24 hr 500 mg PO QPM diclofenac sodium [Voltaren Arthritis Pain] 1 % gel 2 g topical QID Qty: 200 2RF pantoprazole 40 mg tablet,delayed release (DR/EC) 40 mg PO QPM PRN colchicine 0.6 mg tablet 0.6 mg PO .COMPLEX Qty: 10 0RF Rx Instructions: Take 2 tablets (1.2mg) at first, after 1 hour take one more tablet (0.6mg). On day 2 and after take 1 tab (0.6mg) once daily until flare resolves. DO NOT TAKE MORE THAN 3 IN ONE DAY. doxycycline hyclate 100 mg capsule PO clobetasol 0.05 % cream 1 applic topical BID Qty: 90 0RF Rx Instructions: Apply to areas of the back twice daily x 2 weeks as needed for flaring. albuterol sulfate [ProAir HFA] 90 mcg/actuation Hfa Aerosol Inhaler 1 puff INHALATION QID PRN (Reason: Shortness Of Breath) zinc Tablet,Chewable 1 tab PO HS cholecalciferol (vitamin D3) [Vitamin D3] 50 mcg (2,000 unit) Capsule 50 mcg PO Q OTHER DAY Men 50 Plus Multivitamin 300-600-300 mcg Tablet 1 tab PO QAM coenzyme Q10 [Co Q-10] 100 mg Capsule 150 mg PO Q OTHER DAY Hold Instructions: Resume on 01/04/24. azelaic acid [Finacea] 15 % gel 1 applic TOPICAL DAILY PRN (Reason: Acne) aspirin 81 mg Tablet 81 mg PO DAILY Rx Instructions: Only takes if not taking the Aspirin 325mg dose magnesium 100 mg Tablet 100 mg PO DAILY tramadol 50 mg Tablet 50 mg PO Q6H PRN (Reason: Pain) acetaminophen [Tylenol] 325 mg Tablet 650 mg PO TID PRN (Reason: Pain) Referrals Referrals: Daniel Schmitt [Primary Care Provider] -
[2025-05-06] MEDS: OPTIRAY 320 125ml IV ONE (18:34)
--- NOTE | 2025-05-06 19:10 | CT Scan Report ---
CT HEAD: HISTORY: Altered mental status. TECHNIQUE: Noncontrast CT examination of the head is performed. Coronal and sagittal reformats were created. COMPARISON: None FINDINGS: There is no evidence of intracranial hemorrhage, focal mass effect or midline shift. No fluid collection is identified. The ventricular system is midline and symmetric. No evidence of acute major vascular territory infarction. Mild chronic white matter ischemic changes. No calvarial fracture is identified. The paranasal sinuses and mastoids are well aerated. IMPRESSION: No acute intracranial process identified. Electronically signed by Thaddeus Youngblood 05-06-2025 7:10 PM
--- NOTE | 2025-05-06 19:12 | CT Scan Report ---
CT ANGIOGRAM of the CHEST with and without contrast. HISTORY: Chest pain TECHNIQUE: Enhanced and precontrast CT examination of the chest was performed using aortic protocol. IV CONTRAST: 100 mL of OMNIPAQUE 300 COMPARISON: None FINDINGS: PULMONARY ARTERIES: There is a small linear filling defect in the right lower lobe posterior segmental and subsegmental branches (series 10, image [id number]) LYMPH NODES: No lymphadenopathy by size criteria. CARDIOVASCULAR: Mildly enlarged cardiac size. Trace pericardial effusion. No aortic aneurysm. Coronary stents There are coronary artery calcifications in keeping with coronary artery disease. Small area of myocardial thinning in the left ventricular apex may be due to an age-indeterminate myocardial infarction MEDIASTINUM: No solid or cystic mediastinal masses. The esophagus is normally decompressed. LUNGS/PLEURA: The central tracheo-bronchial tree is patent. No mass or consolidation identified. No pleural effusion or pneumothorax. No suspicious pulmonary nodules. BONES: No suspicious osseous lesions. VISUALIZED LOWER NECK: Unremarkable. VISUALIZED UPPER ABDOMEN: Right renal cyst. Left nephrectomy changes. IMPRESSION: Small linear filling defect in the right lower lobe posterior segmental and submental branches may represent a small pulmonary embolism. Mild cardiac enlargement without right heart strain. Small area of myocardial thinning in the left ventricular apex may be due to an age-indeterminate myocardial infarction No acute aortic process identified. Electronically signed by Thaddeus Youngblood 05-06-2025 7:10 PM
[2025-05-06] MEDS: HEPARIN 25000 UNIT/500 ML D5W 25,000 UNITS/500 ML BAG IV SCH (20:39)
--- NOTE | 2025-05-06 20:39 | History & Physical Report ---
Date of Service May 06, 2025 Assessment & Plan (1) Pulmonary embolism: Plan 60-year-old male PMHx CAD s/p catheterization and 2 stents on 05/05/2025 at [facility], CKD s/p L kidney donation, HTN, BPH, esophagitis, hypercholesterolemia, OA, and sciatic nerve injury who presents with chest pain starting day of arrival. ED evaluation is significant for elevated troponin which did decrease on repeat, but also with possible acute PE on chest CTA. Pt to be admitted for management of PE. #Pulmonary Embolism Prior history of DVT/PE, initially after prior L sided Achilles surgery (2010) and then after a long flight in [facility] (2016). Was on Xarelto at baseline but told "he doesn't need it anymore. Since tolerating it, continued on the medication anyway", but this was held 2 days prior to his catheterization. He was then discharged on aspirin and Plavix on 05/05/2025. Appears that even off AC for brief time, he may have developed an acute PE on top of ? chronic PE (radiology unclear if definitely acute or not); He has had some parts of a hypercoag. workup completed in the past per his report (only able to find Protein S of 104 in chart); cardiology consulted to consider further treatment options for ongoing PEs. - PT/INR WNL; troponin 119.7, 87 on repeat - EKG NSR - CXR WNL - Chest CTA small linear filling defect in RLL posterior segmental and and submental branches, may relate to small PE muscles with mild gradient measurement without obvious right - Echo pending - BLE dopplers pending - Hypercoagulable workup pending - FVL, F2, homocysteine, protein C/S, beta 2, cardiolipin - Resume ASA + Plavix at admission - Heparin drip started - continue - Cardiology consulted - appreciate input + recs #T2DM H/o DMT2; At home regimen metformin. - A1c pending - Hold metformin - SSI deferred at time of admission, add if uncontrolled sugars - BSG ACHS - Adjust regimen as needed #CKD stage IIIa/L kidney donation (2000)- Baseline Cr 1.4, Cr at admission 1.5 - Trend BMP daily #Gout- Allopurinol, colchicine prn- continue allopurinol #Psych/Pain- Duloxetine, gabapentin - continue #GERD- Pantoprazole - continue #Hypercholesterolemia- Pravastatin - continue #Insomnia- Trazodone - continue #Asthma- CXR WNL; Albuterol inhaler prn - continue Held tramadol, no current pain. Acetaminophen for pain currently. Dispo: Admit, PCU VTE Prophylaxis: Heparin - treatment dose This document was dictated utilizing [employer]. Please excuse any grammatical errors that may be secondary to use of this software. Admission and Anticipated Discharge Date Admission Date: 05/06/2025 History of Present Illness Chief Complaint: CP Primary Care Provider: Daniel Schmitt 60-year-old male PMHx CAD s/p catheterization and 2 stents on 05/05/2025 at [facility], CKD s/p L kidney donation, HTN, BPH, esophagitis, hypercholesterolemia, OA, and sciatic nerve injury who presents with chest pain starting day of arrival. Pt reports that "a few weeks ago" he had a cardiac stress test which "did not have good results" and he was seen by a vp rheumatology the next day who recommended that he have a catheterization completed given the abnormal findings. He was seen at [facility] on 05/05/2025 for the cardiac catheterization and notes having 2 stents placed in LAD at that time. He was discharged home the same day and recalls being fatigued, but no other symptoms. He states that on the day of arrival he started to notice he was having some L sided chest discomfort that radiated to his R neck, top of shoulder, and between his shoulder blades. He states that it was not severe, but it was noticeable. He decided to read his discharge packet from the day before which listed an array of symptoms to be concerned for, and some of these were symptoms he was experiencing. He called his PCP who recommended he take a NTG. While still on the phone with his PCP, he took the NTG which provided relief of symptoms and due to this, his PCP recommended he be evaluated in the ED. He denies any current chest pain or discomfort at this time. Denies SOB. He does state that he had a dry cough on the day of arrival as well as a sore throat, but relates this to his history of GERD/esophagitis. Has baseline numbness in RLE 2/2 "prior nerve damage from surgery." Again, no SOB, palpitations, abdominal pain, N/V/D/C, new numbness/tingling, dizziness, weakness, syncope, or falls. Has had a history of DVTs/PE in the past (2011 PE 2/2 Achilles surgery, L side; 2017 RLE DVT following long flight). Has been seen by hematology in the past but admits to a normal workup at that time. His only complaint at the time of admission is that he is thirsty. ED evaluation reveals CBC without leukocytosis, stable H&H; PT/INR WNL; CMP creatinine 1.50, BUN 24; troponin 119.7, 87 on repeat; CXR WNL; chest CTA small linear filling defect in RLL posterior segmental and submental branches may represent small PE, mild cardiac enlargement without R heart strain, small area of mild cardial thickening and LV apex; head CT no acute findings; EKG NSR at 75 bpm.; Started on heparin drip in ED. Please see Dr. Angel's attestation for adjustments/additions to treatment plan. Allergies Allergy/AdvReac Type Severity Reaction Status Date / Time Penicillins AdvReac Intermediate Elevated Verified 05/06/25 21:04 liver enzymes rosuvastatin [From Crestor] AdvReac Muscle and Verified 05/06/25 21:05 joint pain Home Medications Medication Instructions Recorded Confirmed Type fluticasone propionate 50 1 sprays intranasal BID PRN sinus 08/13/19 05/06/25 History mcg/actuation nasal congestion spray,suspension (Flonase Allergy Relief) trazodone 50 mg tablet 50 mg PO HS 08/13/19 05/06/25 History cholecalciferol (vitamin D3) 50 50 mcg PO Q OTHER DAY 03/22/21 05/06/25 History mcg (2,000 unit) capsule (Vitamin D3) [id number] 300 mcg-K 60 1 tab PO QAM 03/22/21 05/06/25 History mcg-lycop 600 mcg-lutein 300 mcg tablet (Men 50 Plus Multivitamin) coenzyme Q10 100 mg capsule (Co 150 mg PO Q OTHER DAY 03/25/21 05/06/25 History Q-10) krill oil 500 mg capsule 500 mg PO QAM 04/13/21 05/06/25 History tramadol 50 mg tablet 50 mg PO Q6H PRN Pain 10/26/23 05/06/25 History azelaic acid 15 % topical gel 1 applic topical DAILY PRN Acne 11/05/23 05/06/25 History (Finacea) acetaminophen 325 mg tablet 650 mg PO TID PRN Pain 11/07/23 05/06/25 History (Tylenol) aspirin 81 mg tablet 81 mg PO QAM 12/05/23 05/06/25 History pantoprazole 40 mg tablet,delayed 40 mg PO QPM 12/02/24 05/06/25 History release gentamicin 0.3 % eye drops 2 drp ophthalmic (eye) DAILY #5 mL 03/23/25 05/06/25 Rx metformin 500 mg tablet,extended 500 mg PO QPM 04/07/25 05/06/25 History release 24 hr diclofenac sodium 1 % topical gel 2 g topical QID #200 grams 04/13/25 05/06/25 Rx (Voltaren Arthritis Pain) duloxetine 30 mg capsule,delayed 30 mg PO DAILY #30 caps 04/13/25 05/06/25 Rx release clobetasol 0.05 % topical cream 1 applic topical BID #90 grams 04/29/25 05/06/25 Rx albuterol sulfate 90 mcg/actuation 1 inh inhalation QID PRN Shortness 05/06/25 05/06/25 History aerosol inhaler Of Breath Or Wheezing allopurinol 300 mg tablet 300 mg PO DAILY 05/06/25 05/06/25 History clopidogrel 75 mg tablet 75 mg PO QAM 05/06/25 05/06/25 History colchicine 0.6 mg tablet 0.6 mg PO .COMPLEX PRN FLARES 05/06/25 05/06/25 History gabapentin 300 mg capsule 300 mg PO TID 05/06/25 05/06/25 History magnesium oxide 250 mg PO DAILY 05/06/25 05/06/25 History nitroglycerin 0.4 mg sublingual 0.4 mg sublingual .UD PRN Chest 05/06/25 05/06/25 History tablet Pain omega-3 fatty acids 1,000 mg 1,000 mg PO DAILY 05/06/25 05/06/25 History capsule zinc gluconate 50 mg tablet 50 mg PO DAILY 05/06/25 05/06/25 History Past Med/Surg History Problem List Pulmonary embolism (Acute) Chest pain (Acute) Hand pain Sciatica Elevated PSA Arthritis Sciatic nerve injury Insomnia Obstructive sleep apnea History of left hip replacement Hypercholesteremia Esophagitis Odynophagia Screening PSA (prostate specific antigen) BPH with obstruction/lower urinary tract symptoms Dermatologic problem Vitamin D deficiency Hypertension Swelling of finger joint of right hand Chronic kidney disease Right shoulder pain S/P arthroscopy of right shoulder Encounter for pre-operative examination Impingement syndrome of right shoulder Rupture of proximal biceps tendon Bilateral hip joint arthritis Difficulty swallowing REASON FOR EGD ON 12/01/22 History of colon polyps Medical History GERD (gastroesophageal reflux disease) controlled, stable per pt shelter (current) use of anticoagulants BPH (benign prostatic hyperplasia) Hypertension borderline, no meds History of COVID-19 (~07/2022) resolved Osteoarthritis Cardiac murmur as child, pt denies persistence into adulthood Asthma exercise induced, inhaler rarely-last used yrs ago Sleep apnea CPAP-compliant Pulmonary embolism (~2016) from plane ride, xarelto Deep vein thrombosis post achilles surgery> 09/2011 > currently taking xarelto daily. Surgical History S/P arthroscopy of right shoulder Hx of hand surgery right middle finger surgery Hx of elbow surgery bone spur left elbow Hx of hand surgery left little finger Hx of thumb surgery x2 (right thumb) History of Achilles tendon repair lt Hx of vasectomy History of colonoscopy multiple History of nephrectomy, left donor History of nasal septoplasty History of tonsillectomy Family History Grandfather (Paternal) Diabetes Mother Osteoarthritis Father Osteoarthritis Other No family history of adverse response to anesthesia Social History Smoking Status: Never smoker Second Hand Exposure: No; Do You Dip or Chew Tobacco: No; Hx Alcohol Use: Yes Alcohol type: beer, wine and hard liquor Hx Substance Use: No Preferred Language: Indonesian Communication Ability: Effective Visual Impairment: No Limitations Hearing Ability: Normal Student Development Coordinator Required: No Beliefs That Will Affect Care: None marital status: Current Living Situation: Family current occupation: [employer] How many Children do You have: 3 Feels Safe at Home: Yes Assistive Devices: CPAP Review of Systems Review of Systems: All systems reviewed & are unremarkable except as noted in Subjective Physical Exam Physical Exam: General: No acute distress Skin: Warm and dry Head: Normocephalic, atraumatic Eyes: PERRL, conjunctivae clear, sclera non-icteric ENT: External ear and ear canal without swelling; nose atraumatic; good dentition, tongue normal appearance, pharynx normal Neck: Supple, no LAD Cardio: RRR, no M/G/R, S1 and S2 normal Resp: No respiratory distress, Lungs CTA in all lobes bilaterally, no wheezes, rales, or rhonchi Abdomen: Soft, symmetric, nontender; No masses or hepatosplenomegaly; Bowel sounds normoactive MSK: No deformities; pulses palpable and equal; no edema; no calf size discrepancies, no calf tenderness. Neuro: Awake, alert; Sensation intact bilaterally; CN grossly intact Psych: Appropriate mood and affect; good judgement and insight. Results & Data Results & Data Vital Signs (Past 12 Hours) Vital Signs Temp Pulse Pulse Resp BP BP Pulse Ox 05/06/25 17:17 77 17 97 05/06/25 17:17 96 05/06/25 17:16 78 12 170/104 H 98 05/06/25 15:36 36.7 C 90 18 152/89 H 97 O2 Del Method 05/06/25 17:17 Room Air 05/06/25 17:17 Room Air 05/06/25 17:16 Room Air 05/06/25 15:36 Room Air Laboratory Results 05/06/25 05/06/25 17:40 15:44 WBC 6.37 RBC 5.04 Hgb 15.5 Hct 45.0 MCV 89.3 MCH 30.8 MCHC 34.4 RDW Std Deviation 44.1 RDW Coeff of [place] 13.5 Plt Count 191 MPV 10.4 Immature Gran % (Auto) 0.3 Neut % (Auto) 63.8 Lymph % (Auto) 25.4 [place] % (Auto) 8.6 Eos % (Auto) 1.4 Baso % (Auto) 0.5 Neut # (Auto) 4.06 Lymph # (Auto) 1.62 [place] # (Auto) 0.55 Eos # (Auto) 0.09 Baso # (Auto) 0.03 Immature Gran # (Auto) 0.02 PT 10.8 INR 1.0 APTT 26 PTT Ratio 1.0 Sodium 136 Potassium 4.1 Chloride 101 Carbon Dioxide 27 Anion Gap 8 BUN 24 H Creatinine 1.50 H Est Cr Clr Drug Dosing 70.3 eGFR 52.97 BUN/Creatinine Ratio 16.0 Glucose 88 Calcium 9.8 Total Bilirubin 0.7 AST 21 ALT 30 Alkaline Phosphatase 51 Troponin I High Sens 87.0 H* D 119.7 H* Total Protein 7.9 Albumin 4.3 Globulin 3.6 Albumin/Globulin Ratio 1.2 Diagnostic Findings Chest X-Ray 05/06/25 15:52 Chest radiograph, one view History: Chest pain Comparison: None Findings: Single AP view of the chest performed. No focal consolidation or pleural effusion. No pneumothorax. The cardiomediastinal silhouette is within normal limits. Normal pulmonary vascularity. No evidence for lymphadenopathy. No visualized bony or soft tissue abnormality. Impression: Normal chest radiograph Electronically signed by Raghu Delaney 05-06-2025 4:18 PM Chest CTA 05/06/25 17:52 CT ANGIOGRAM of the CHEST with and without contrast. HISTORY: Chest pain TECHNIQUE: Enhanced and precontrast CT examination of the chest was performed using aortic protocol. IV CONTRAST: 100 mL of OMNIPAQUE 300 COMPARISON: None FINDINGS: PULMONARY ARTERIES: There is a small linear filling defect in the right lower lobe posterior segmental and subsegmental branches (series 10, image [id number]) LYMPH NODES: No lymphadenopathy by size criteria. CARDIOVASCULAR: Mildly enlarged cardiac size. Trace pericardial effusion. No aortic aneurysm. Coronary stents There are coronary artery calcifications in keeping with coronary artery disease. Small area of myocardial thinning in the left ventricular apex may be due to an age-indeterminate myocardial infarction MEDIASTINUM: No solid or cystic mediastinal masses. The esophagus is normally decompressed. LUNGS/PLEURA: The central tracheo-bronchial tree is patent. No mass or consolidation identified. No pleural effusion or pneumothorax. No suspicious pulmonary nodules. BONES: No suspicious osseous lesions. VISUALIZED LOWER NECK: Unremarkable. VISUALIZED UPPER ABDOMEN: Right renal cyst. Left nephrectomy changes. IMPRESSION: Small linear filling defect in the right lower lobe posterior segmental and submental branches may represent a small pulmonary embolism. Mild cardiac enlargement without right heart strain. Small area of myocardial thinning in the left ventricular apex may be due to an age-indeterminate myocardial infarction No acute aortic process identified. Electronically signed by Thaddeus Youngblood 05-06-2025 7:[address] 05/06/25 17:52 CT HEAD: HISTORY: Altered mental status. TECHNIQUE: Noncontrast CT examination of the head is performed. Coronal and sagittal reformats were created. COMPARISON: None FINDINGS: There is no evidence of intracranial hemorrhage, focal mass effect or midline shift. No fluid collection is identified. The ventricular system is midline and symmetric. No evidence of acute major vascular territory infarction. Mild chronic white matter ischemic changes. No calvarial fracture is identified. The paranasal sinuses and mastoids are well aerated. IMPRESSION: No acute intracranial process identified. Electronically signed by Thaddeus Youngblood 05-06-2025 7:10 PM Medications Administered Heparin drip IV ECG Additional Comments: NSR 75 bpm, WI 180, QRS 88, QT/QTc 358/399, PRT 56/- Code Status & VTE Plan Code Status Full Supervising Physician Co-Signing Physician Notes Patient seen and examined, chart reviewed, case discussed with RADHA Warner and I agree with the assessment and plan as above. Patient with CAD s/p stent placement x 2 on 05/05/25. Prior VTE presenting with chest tightness and shortness of breath. Found to have recurrent and acute DVT as well as small linear filling defect int he RLL posterior segmental and subsegmental branches On exam patient is seen in room 230-2, resting comfortably, states that pain has improved +S1/S2, regular, no m/r/g Lungs CTA Abd soft, NT/ND Ext warm, well perfused Labs and images reviewed Assessment/Plan Will continue DAPT with ASA and Plavix for now given fresh stent placement Heparin gtt for now given recurrence of VTE Cardiology consultation appreciated regarding DAPT + Blood thinner Remainder as above PG Care Time/CCT Total # of Minutes Spent Total Time Spent with Patient: Total time spent is greater than 50% in coordination of care (as documented) at patient's floor/unit and/or counseling patient: Coding Level of Care Code 27284 INT INP/OBS CARE /MIN Diagnoses Pulmonary embolism I26.99
[2025-05-06] MEDS: Heparin IV Adult Wt-Based Standard *NO* INITIAL Bolus Protocol IV STA (21:23)
[2025-05-06] MEDS ORDERED: MELATONIN 3 MG TAB PO PRN (22:03)
[2025-05-06] MEDS ORDERED: POLYETHYLENE (MIRALAX) 17 GM PACK PO PRN (22:03)
[2025-05-06] MEDS ORDERED: ONDANSETRON INJ 2 MG/ML 2 ML VIAL IV PRN (22:03)
[2025-05-06] MEDS ORDERED: ALBUTEROL HFA 8 GM INHALER INH PRN (22:24)
[2025-05-06] MEDS ORDERED: ACETAMINOPHEN 325 MG TAB PO PRN (22:24)
[2025-05-06] MEDS ORDERED: NITROGLYCERIN SL 0.4 MG/TAB TAB SL PRN (22:24)
[2025-05-07] MEDS: ACETAMINOPHEN 500 MG TAB PO PRN (01:36)
--- NOTE | 2025-05-07 04:00 | Ultrasound Report ---
EXAM: US venous doppler LE BI CLINICAL HISTORY: PE TECHNIQUE: An ultrasound examination of the bilateral lower extremity veins was performed in real time and with duplex imaging. One or more of the following were performed: spectral analysis, resistive index, waveform analysis, and pulsed Doppler. COMPARISON: 11/23/2011 FINDINGS: Stranding and broken flow were identified within a duplicated mid to distal left femoral vein, similar to the prior study, suggesting recurrent acute DVT. Clinical and laboratory correlation is needed. Otherwise: Normal phasic, non-pulsatile, and spontaneous flow is noted in the right common femoral, superficial femoral, bilateral popliteal, posterior tibial, and peroneal veins. otherwise:The visualized veins of both lower extremities demonstrate normal compressibility. No sonographic evidence of acute deep vein thrombosis (DVT) is detected in the visualized veins of right lower extremity. IMPRESSION: Stranding and broken flow were identified within a duplicated mid to distal left femoral vein, similar to the prior study, suggesting recurrent acute DVT. Clinical and laboratory correlation is needed. Disclaimer: DVT could be missed early in the disease when the clot burden is minimal. For patients with moderate and high pretest probability of DVT and negative ultrasound, the [employer] clinical guidelines recommend testing with a D-dimer assay or repeat ultrasound in 5-7 days. If symptoms worsen, the Society of Radiologists in Ultrasound recommends repeating the ultrasound even earlier. Electronically signed by Jose Peralta 05-07-2025 03:59 AM
[2025-05-07 04:05] LABS: ANTI-Xa, UFH(UnfractionatedHep 0.47 IU/ml (0.3-0.7)
[2025-05-07] MEDS ORDERED: GLUCAGON FOR INJ 1 MG VIAL SQ PRN (08:12)
[2025-05-07] MEDS ORDERED: GLUCOSE 10 TAB/TUBE PO PRN (08:12)
[2025-05-07] MEDS ORDERED: CARBOHYDRATES FOR HYPOGLYCEMIA PO PRN (08:12)
[2025-05-07] MEDS ORDERED: GLUCOSE 40% GEL 15 GM TUBE PO PRN (08:12)
[2025-05-07] MEDS ORDERED: DEXTROSE 50% 50 ML SYRINGE IV PRN (08:12)
[2025-05-07] MEDS: ASPIRIN 81 MG ECTAB PO SCH (08:48)
[2025-05-07] MEDS: CLOPIDOGREL BISULFATE 75 MG TAB PO SCH (08:49)
[2025-05-07] MEDS: MAGNESIUM OXIDE 400 MG TAB PO SCH (08:49)
[2025-05-07] MEDS: DICLOFENAC SOD 1% GEL 100 GM TUBE EXT SCH (08:49)
[2025-05-07] MEDS: GABAPENTIN 300 MG CAP PO SCH (08:49)
--- NOTE | 2025-05-07 10:41 | XCELERA ---
[id number] \\[id number]
[2025-05-07] MEDS: METOPROLOL TARTRATE 25 MG TAB PO SCH (11:27)
--- NOTE | 2025-05-07 11:39 | Hospitalist Progress Note ---
Date of Service May 07, 2025 Assessment & Plan (1) Pulmonary embolism: Plan: Acute PE considered to be unlikely at this time. D-dimer is normal. Heparin drip has been discontinued. He takes Xarelto at home which has been restarted. Aspirin and Plavix have recently been started due to his coronary PCI procedure done 2 days ago. He understands the risks of bleeding diathesis. (2) Chest pain: Plan: Although troponin was mildly elevated on admission there are no acute EKG changes seen and I doubt if he had an acute coronary syndrome. Continue telemetry. Metoprolol has been added (3) Hypertension: Plan: Metoprolol added for blood pressure control. Will follow (4) Chronic kidney disease: Plan: Stage III. Creatinine is stable at 1.5. Monitor intake and output. Serial labs (5) Type 2 diabetes mellitus: Plan: Metformin is currently on hold. Sliding scale coverage as needed. Plan Hopeful discharge to home tomorrow, May 08 Admission and Anticipated Discharge Date Admission Date: May 06, 2025 Subjective Alert and oriented. Mild blood pressure elevation. He is on room air. No distress. His D-dimer is normal and I highly doubt he has had an acute PE. Heparin drip has been discontinued. He takes Xarelto chronically and this has been restarted. He is also on aspirin and Plavix started since he recently had coronary stents placed 2 days ago and he knows the risks of potential bleeding. EKG #1 and EKG #2 are negative for any significant findings. Troponin mildly elevated on admission but is downtrending. Chest x-ray on admission clear. Creatinine stable at 1.5. Low-dose metoprolol started since he has underlying coronary artery disease and he also has mild hypertension. This will be continued at discharge. Hopefully he can go home tomorrow, May 08. Cardiology consultation has been requested. Review of Systems 2 Review of Systems: Constitutionalno fever or chills ENTno blurred vision, no double vision, no epistaxis, no sore throat Respiratoryno cough, no wheezing, no shortness of breath Cardiacno palpitations, no chest pain, no syncope Navid nausea, vomiting, diarrhea, melena, hematochezia GUno urinary retention, no urinary incontinence, no dysuria, no hematuria Musculoskeletalno joint pain, no muscle tenderness Skinno bruising, no rashes, no pruritus Neurono isolated weakness, no paresthesia, no weakness Psychno depression, no anxiety Physical Exam 2 Physical Exam: General-alert and oriented x3, no fever, no chills HEENT-head atraumatic and normocephalic, pupils equal and reactive to light, extraocular muscles intact Neck-no lymphadenopathy or thyromegaly, trachea midline Chest-clear to auscultation. No rales, wheezing or rhonchi Cardiac-regular rate and rhythm, normal S1 and S2 Abdomen-normal bowel sounds, no hepatosplenomegaly Extremities-no cyanosis, clubbing, or edema Neuro-cranial nerves II through XII intact, motor and sensory function within normal limits, strength symmetrical, no focal deficits Psych-normal affect, normal mood Results & Data Results & Data Vital Signs (Past 12 Hours) Vital Signs Temp Pulse Resp BP Pulse Ox O2 Del Method 05/07/25 11:02 36.7 C 72 18 138/88 94 Room Air 05/07/25 08:50 36.6 C 80 18 160/100 H 96 Room Air 05/07/25 03:11 36.4 C L 60 16 110/76 95 CPAP Laboratory Results 05/06/25 15:44 05/06/25 15:44 PG Care Time/CCT Total # of Minutes Spent Total Time Spent with Patient: Total time spent is greater than 50% in coordination of care (as documented) at patient's floor/unit and/or counseling patient: Coding Level of Care Code 51209 SUB INP/OBS CARE 3/50MIN Diagnoses Pulmonary embolism I26.99 Chest pain R07.9 Hypertension I10 Chronic kidney disease N18.9 Type 2 diabetes mellitus E11.9
[2025-05-07] MEDS: INSULIN ASPART PER UNIT CHARGE SC SCH (12:31)
--- NOTE | 2025-05-07 12:34 | Electrocardiogram Report ---
Test Reason : Blood Pressure : */* mmHG Vent. Rate : 70 BPM Atrial Rate : 70 BPM P-R Int : 198 ms QRS Dur : 90 ms QT Int : 376 ms P-R-T Axes : 49 -1 19 degrees QTcB Int : 406 ms Normal sinus rhythm Normal ECG When compared with ECG of 06-May-2025 15:47, (unconfirmed) No significant change was found Confirmed by Raghu Dey ([id number]) on 05/07/2025 12:33:40 PM Referred By: REFERRED SELF Confirmed By: Raghu Dey
--- NOTE | 2025-05-07 12:37 | Electrocardiogram Report ---
Test Reason : Blood Pressure : */* mmHG Vent. Rate : 75 BPM Atrial Rate : 75 BPM P-R Int : 180 ms QRS Dur : 88 ms QT Int : 358 ms P-R-T Axes : 56 -17 29 degrees QTcB Int : 399 ms Normal sinus rhythm Normal ECG Confirmed by Raghu Dey ([id number] on 05/07/2025 12:37:04 PM Referred By: REFERRED SELF Confirmed By: Raghu Dey
[2025-05-07] MEDS: GABAPENTIN 400 MG CAP PO SCH (14:22)
[2025-05-07] MEDS: RIVAROXABAN 20 MG TAB PO SCH (20:36)
[2025-05-08 04:02] VITALS: TEMP 97.7
[2025-05-08 07:23] VITALS: BP 110/79; RESP 20; O2SAT 98
[2025-05-08 07:46] LABS: ANTI-Xa, UFH(UnfractionatedHep > 1.50 IU/ml (0.3-0.7)
[2025-05-08 09:16] VITALS: PULSE 58
--- NOTE | 2025-05-08 10:18 | Discharge Summary ---
Discharge Summary Date of Service May 08, 2025 Principal Dx & Hospital Course #1 = Principal Diagnosis (1) Pulmonary embolism: Acute PE considered to be unlikely at this time. D-dimer is normal. Heparin drip has been discontinued. He takes Xarelto at home which has been restarted. Aspirin has been discontinued. He will remain on Plavix. He underwent a coronary PCI procedure done 2 days prior to this admission. He understands the risks of bleeding diathesis. (2) Chest pain: Although troponin was mildly elevated on admission there are no acute EKG changes seen and I doubt if he had an acute coronary syndrome. Continue telemetry. Metoprolol has been added (3) Hypertension: Metoprolol added for blood pressure control. Blood pressure is much improved. Will follow (4) Chronic kidney disease: Stage III. Creatinine is stable at 1.5. Monitor intake and output. Serial labs (5) Type 2 diabetes mellitus: Metformin is currently on hold. This can be restarted at discharge. Sliding scale coverage as needed. Plan Home today, May 08 Admission HPI Per Admitting Provider 60-year-old male PMHx CAD s/p catheterization and 2 stents on 05/05/2025 at [facility], CKD s/p L kidney donation, HTN, BPH, esophagitis, hypercholesterolemia, OA, and sciatic nerve injury who presents with chest pain starting day of arrival. Pt reports that "a few weeks ago" he had a cardiac stress test which "did not have good results" and he was seen by a church history teacher the next day who recommended that he have a catheterization completed given the abnormal findings. He was seen at [facility] on 05/05/2025 for the cardiac catheterization and notes having 2 stents placed in LAD at that time. He was discharged home the same day and recalls being fatigued, but no other symptoms. He states that on the day of arrival he started to notice he was having some L sided chest discomfort that radiated to his R neck, top of shoulder, and between his shoulder blades. He states that it was not severe, but it was noticeable. He decided to read his di scharge packet from the day before which listed an array of symptoms to be concerned for, and some of these were symptoms he was experiencing. He called his PCP who recommended he take a NTG. While still on the phone with his PCP, he took the NTG which provided relief of symptoms and due to this, his PCP recommended he be evaluated in the ED. He denies any current chest pain or discomfort at this time. Denies SOB. He does state that he had a dry cough on the day of arrival as well as a sore throat, but relates this to his history of GERD/esophagitis. Has baseline numbness in RLE 10/05 "prior nerve damage from surgery." Again, no SOB, palpitations, abdominal pain, N/V/D/C, new numbness/tingling, dizziness, weakness, syncope, or falls. 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 Has been seen by hematology in the past but admits to a normal workup at that time. His only complaint at the time of admission is that he is thirsty. ED evaluation reveals CBC without leukocytosis, stable H&H; PT/INR WNL; CMP creatinine 1.50, BUN 24; troponin 119.7, 87 on repeat; CXR WNL; chest CTA small linear filling defect in RLL posterior segmental and submental branches may represent small PE, mild cardiac enlargement without R heart strain, small area of mild cardial thickening and LV apex; head CT no acute findings; EKG NSR at 75 bpm.; Started on heparin drip in ED. Please see Dr. Angel's attestation for adjustments/additions to treatment plan. Discharge Exam General-alert and oriented x3, no fever, no chills HEENT-head atraumatic and normocephalic, pupils equal and reactive to light, extraocular muscles intact Neck-no lymphadenopathy or thyromegaly, trachea midline Chest-clear to auscultation. No rales, wheezing or rhonchi Cardiac-regular rate and rhythm, normal S1 and S2 Abdomen-normal bowel sounds, no hepatosplenomegaly Extremities-no cyanosis, clubbing, or edema Neuro-cranial nerves II through XII intact, motor and sensory function within normal limits, strength symmetrical, no focal deficits Psych-normal affect, normal mood Discharge Plan Discharge Items Patient Disposition: Home - Self-Care Reason For Visit: PE Discharge Diagnosis: Uncontrolled hypertension, chest pain with elevated troponin without acute coronary syndrome Condition on Discharge: Good Activity: Resume your previous activity Non-emergency contact: Primary Care Provider and Butter Maker Call non-emergency contact if: you have any medication questions and your symptoms worsen Follow-up/Referrals: Daniel Schmitt [Primary Care Provider] - Diet: Carb Consistent or DM2 and Heart Healthy Addtl Attending Provider Instructions: Metoprolol has been added for blood pressure control and heart rate control. Take only Xarelto and Plavix. Aspirin has been discontinued. See your church history teacher and primary care provider for follow-up as soon as possible Pending Studies at Discharge: No Stand-Alone Forms: My [facility] Rupture, Smoking Cessation Medications and DC Order Prescriptions: New metoprolol tartrate 25 mg Tablet 25 mg PO BID Qty: 60 0RF Xarelto 20 mg Tablet 20 mg PO QPM Qty: 0 0RF Continued gentamicin 0.3 % drops 2 drp ophthalmic (eye) DAILY Qty: 5 0RF Rx Instructions: Apply to affected area daily at bedtime as directed. Placed in right thumb nail duloxetine 30 mg capsule,delayed release(DR/EC) 30 mg PO DAILY Qty: 30 0RF fluticasone propionate [Flonase Allergy Relief] 50 mcg/actuation spray,suspension 1 sprays INTNAS BID PRN (Reason: sinus congestion) trazodone 50 mg tablet 50 mg PO HS krill oil 500 mg capsule 500 mg PO QAM Hold Instructions: Resume on 01/04/24. metformin 500 mg tablet extended release 24 hr 500 mg PO QPM diclofenac sodium [Voltaren Arthritis Pain] 1 % gel 2 g topical QID Qty: 200 2RF pantoprazole 40 mg tablet,delayed release (DR/EC) 40 mg PO QPM clobetasol 0.05 % cream 1 applic topical BID Qty: 90 0RF Rx Instructions: Apply to areas of the back twice daily x 2 weeks as needed for flaring. cholecalciferol (vitamin D3) [Vitamin D3] 50 mcg (2,000 unit) Capsule 50 mcg PO Q OTHER DAY Men 50 Plus Multivitamin 300-600-300 mcg Tablet 1 tab PO QAM coenzyme Q10 [Co Q-10] 100 mg Capsule 150 mg PO Q OTHER DAY Hold Instructions: Resume on 01/04/24. azelaic acid [Finacea] 15 % gel 1 applic TOPICAL DAILY PRN (Reason: Acne) clopidogrel 75 mg tablet 75 mg PO QAM albuterol sulfate 90 mcg/actuation Hfa Aerosol Inhaler 1 inh INHALATION QID PRN (Reason: Shortness Of Breath Or Wheezing) nitroglycerin 0.4 mg tablet, sublingual 0.4 mg sublingual .UD PRN (Reason: Chest Pain) Rx Instructions: ONE TABLET UNDER THE TONGUE EVERY 5MINUTES X 3 allopurinol 300 mg tablet 300 mg PO DAILY colchicine 0.6 mg tablet 0.6 mg PO .COMPLEX PRN (Reason: FLARES) Rx Instructions: Take 2 tablets (1.2mg) at first, after 1 hour take one more tablet (0.6mg). On day 2 and after take 1 tab (0.6mg) once daily until flare resolves. DO NOT TAKE MORE THAN 3 IN ONE DAY. gabapentin 300 mg capsule 300 mg PO TID zinc gluconate 50 mg Tablet 50 mg PO DAILY magnesium oxide 250 mg magnesium Tablet 250 mg PO DAILY omega-3 fatty acids 1,000 mg Capsule 1,000 mg PO DAILY tramadol 50 mg Tablet 50 mg PO Q6H PRN (Reason: Pain) acetaminophen [Tylenol] 325 mg Tablet 650 mg PO TID PRN (Reason: Pain) Discontinued aspirin 81 mg Tablet 81 mg PO QAM Rx Instructions: Only takes if not taking the Aspirin 325mg dose Discharge Orders: Discharge Order (Routine); Ordered 05/08/25 Ordered By: Franco Herbert Admission Data Admit Date/Time: 05/06/25 21:15 Attending Provider: Franco Herbert Admit Provider: Magda Angel Primary Care Provider: Daniel Schmitt Other Providers: Magda Angel; Raghu Dey Hospital Stay Data Consultations 05/06/25 20:15 ED Decision to Admit Stat 05/06/25 22:03 Consult Cardiology Routine Diagnostic Imagining Performed 05/06/25 17:52 CT head/brain wo con Stat CTA chest dissec wo/w con [CT angio chest dissec wo/w con] Stat 05/07/25 US venous doppler LE BI Routine Pending Results Patient Have Any Pending Studies at Discharge: No Discharge Instructions Given to Patient (Per Discharging Provider) Metoprolol has been added for blood pressure control and heart rate control. Take only Xarelto and Plavix. Aspirin has been discontinued. See your church history teacher and primary care provider for follow-up as soon as possible Total Time Total Time Spent Total Time Spent (In Minutes): 45-minute Coding Level of Care Code 06843 INP/OBS DISCH >30 MIN Diagnoses Pulmonary embolism I26.99 Chest pain R07.9 Hypertension I10 Chronic kidney disease N18.9 Type 2 diabetes mellitus E11.9
== END 2025-05-08 10:47 | disposition home or self-care (01) | DRG 313 ==
LOC: ED 15:16 → SUATTDRO 21:15 → 2S 21:15